=== PATIENT | male | born 1960 | race Caucasian/White ===

== ENCOUNTER → 2016-08-05 | Outpatient (CLI) | payer BC ==
--- NOTE | 2016-08-05 14:51 | CR ---
EXAMINATION: Left elbow HISTORY: Pain COMPARISON: None TECHNIQUE: 3 views FINDINGS/IMPRESSION: There is no acute osseous abnormality, dislocation, or fracture identified. No joint effusion or soft tissue swelling. Mild osteoarthritic changes are noted within the medial join t space.
== END ==
LOC: MW.CHRC 11:11
PROVIDERS: ATTEND Family Medicine
DX: M25.522 Pain in left elbow (principal); M25.422 Effusion, left elbow; M19.022 Primary osteoarthritis, left elbow
CPT/HCPCS: 73080-26-LT; 73080-LT

== ENCOUNTER 2016-12-25 07:45 | Day surgery (SDC) | payer BC ==
[~2016-12-25 07:45] MED LIST: Lactated Ringers 1,000 ML IV SCH; Lidocaine 2% 5 ML SDV ONE; Propofol 200 MG/20 ML SDV ONE; fentaNYL 100 MCG/2 ML SDV ONE
[2016-12-25] MEDS ORDERED: Albuterol/Ipratropium 3.0-0.5 MG/3 ML Neb Soln NEB ONE (08:17)
--- NOTE | 2016-12-25 08:21 | PCM.PREANE ---
Preanesthetic Assessment - Anesthesia/Transfusion/Family Hx Anesthesia History: Prior Anesthesia Without Reaction Other Type of Anesthesia Reaction Comment: Denies any known problem in the past Family History of Anesthesia Reaction: No Transfusion History: Prior Transfusion Without Reaction Intubation History: Unknown - Review of Systems General: No Symptoms Pulmonary: No Symptoms Cardiovascular: No Symptoms Gastrointestinal: No Symptoms, Other (melena) Neurological: No Symptoms Other: Reports: None - Physical Assessment O2 Sat by Pulse Oximetry: 98 Respiratory Rate: 16 Vital Signs: Last Vital Signs Temp 36.7 C 12/25/16 07:56 Pulse 70 12/25/16 07:56 Resp 16 12/25/16 07:56 BP 153/98 H 12/25/16 07:56 Pulse Ox 98 12/25/16 07:56 Height: 1.8 m Weight: 92.079 kg ASA Class: 2 Mental Status: Alert & Oriented x3 Airway Class: Mallampati = 2 Dentition: Reports: Normal Dentition Thyro-Mental Finger Breadths: 3 Mouth Opening Finger Breadths: 3 ROM/Head Extension: Full Lungs: Normal Respiratory Effort, Wheezing Cardiovascular: Regular Rate, Regular Rhythm - Allergies Allergies/Adverse Reactions: Allergies Allergy/AdvReac Type Severity Reaction Status Date / Time No Known Allergies Allergy Verified 05/10/15 14:00 - Blood Blood Available: No - Anesthesia Plan Pre-Op Medication Ordered: None - Acknowledgements Anesthesia Type Planned: MAC Pt an Appropriate Candidate for the Planned Anesthesia: Yes Alternatives and Risks of Anesthesia Discussed w Pt/Guardian: Yes Pt/Guardian Understands and Agrees with Anesthesia Plan: Yes PreAnesthesia Questionnaire Cardiovascular History: Reports: High Cholesterol Respiratory History: Reports: COPD (walks 2 blocks without SOB), Other (See Below) Other Respiratory History: Tobacco dependence reports 35 yr history current use 1 pack per day Gastrointestinal History: Reports: GERD, Other (See Below) (upper GI bleed 4 years ago in [place] requiring 5 units of blood transfusion) Other Gastrointestinal History: hx; heartburn/indigestion reports managed with omeprazole Psychiatric History: Reports: Depression Hematologic History: Reports: Anemia, Blood Transfusion(s), Other (See Below) Other Hematologic History: Reports history of having a blood transfusion - Past Surgical History Head Surgeries/Procedures: Reports: None GI Surgical History: Reports: EGD Neurological Surgical History: Reports: Lumbar Spine, Other (See Below) Other Neurological Surgeries/Procedures: Low back surgery Musculoskeletal Surgical History: Reports: Arthroscopic Knee - SUBSTANCE USE Smoking Status *Q: Current Every Day Smoker (1 ppd) Tobacco Use Within Last Twelve Months: Cigarettes Days Per Week of Alcohol Use: 7 Number of Drinks Per Day: 4 Total Drinks Per Week: 28 Recreational Drug Use History: Yes Recreational Drug Type: Recreational Drug Last Use: 2 days ago - HOME MEDS Home Medications: Home Meds Ferrous Sulfate [Iron] 325 mg PO BID 12/22/16 [History] Omeprazole 40 mg PO DAILY 12/22/16 [History] - CURRENT (IN HOUSE) MEDS Current Meds: Current Medications Lactated Ringer's (Ringers, Lactated) 1,000 mls @ 125 mls/hr IV ASDIRECTED VERO Last Admin: 12/25/16 07:58 Dose: 125 mls/hr Discontinued Medications Fentanyl (Sublimaze) Confirm Administered Dose 100 mcg .ROUTE .STK-MED ONE Stop: 12/25/16 07:18 Lidocaine (Xylocaine-Mpf 2%) Confirm Administered Dose 5 ml .ROUTE .STK-MED ONE Stop: 12/25/16 07:18 Propofol (Diprivan 20 Ml) Confirm Administered Dose 400 mg .ROUTE .STK-MED ONE Stop: 12/25/16 07:18
--- NOTE | 2016-12-25 10:42 | PCM.OPNOTE ---
- General Post-Op/Procedure Note Date of Surgery/Procedure: 12/25/16 Operative Procedure(s): Esophagogastroduodenoscopy with biopsy. Pre Op Diagnosis: Iron deficiency anemia. Melena. Post-Op Diagnosis: Multiple proximal gastric ulcers. Large hiatal hernia. Anesthesia Technique: MAC (ASA II) Primary Surgeon: Rob Goddard Condition: Good Free Text/Narrative:: Dictation [id number]. CPT CODE 39571. Patient will be started on Carafate 1 g 4 times a day and Nexium 40 mg daily.
[2016-12-25] MEDS ORDERED: Lactated Ringers 1,000 ML IV SCH (10:45)
[2016-12-25 11:07] VITALS: BP 125/88
--- NOTE | 2016-12-25 11:07 | OR ---
SURGEON: Rob Goddard M.D. DATE OF PROCEDURE: 12/25/2016 OPERATION PERFORMED: Esophagogastroduodenoscopy with biopsy. ANESTHESIA: MAC. ASA CLASSIFICATION: II. PREOPERATIVE DIAGNOSES: 1. Black tarry stools. 2. Anemia. 3. History of gastrointestinal bleed. POSTOPERATIVE DIAGNOSES: 1. Multiple proximal gastric ulcers. 2. Large hiatal hernia. DESCRIPTION OF PROCEDURE: The patient was taken to the endoscopy room and positioned on the endoscopy table in the supine position. Time-out was called for appropriate identification of patient and procedure. Monitored anesthesia care was provided. The bite block was placed between the patient's teeth. The gastroscope was inserted through the bite block into the mouth and advanced without difficulty through the esophagus and stomach, into the duodenum, where examination was carried out in a retrograde fashion. No blood was seen in the duodenum. No ulcerations or inflammatory changes were noted. The gastroscope was withdrawn to the distal stomach and antrum. Again, mild gastritis was noted but no acute ulcerations. The gastroscope was retroflexed to visualize the proximal stomach, where multiple superficial ulcerations were noted along with a large hiatal hernia. The gastroscope was then straightened, and biopsies of the antrum were obtained. As the scope was withdrawn, the proximal stomach was again visualized and multiple biopsies of the superficial ulcers were also obtained. The hiatal hernia was quite large. The GE junction was well defined and did not show any significant acute inflammatory changes. The mid and proximal esophagus showed good contractility and again no lesions. The vocal cords were visualized as the scope was withdrawn and noted to move symmetrically. The gastroscope was then removed with the patient having tolerated the procedure well. He was taken to recovery room in stable condition. ALEXANDR PHELAN /[id number]
== END 2016-12-25 11:05 | disposition home or self-care (01) ==
LOC: MW.SDS 07:45
PROVIDERS: ATTEND Surgery
PROC: 0DB68ZX Excision of Stomach, Via Natural or Artificial Opening Endoscopic, Diagnostic (ICD-10-PCS; principal; 2016-12-25)
DX: K29.50 Unspecified chronic gastritis without bleeding (principal); K25.9 Gastric ulcer, unspecified as acute or chronic, without hemorrhage or perforation; K44.9 Diaphragmatic hernia without obstruction or gangrene; D50.9 Iron deficiency anemia, unspecified; M19.90 Unspecified osteoarthritis, unspecified site; J44.9 Chronic obstructive pulmonary disease, unspecified; F32.9 Major depressive disorder, single episode, unspecified; E78.5 Hyperlipidemia, unspecified; K21.9 Gastro-esophageal reflux disease without esophagitis; M17.11 Unilateral primary osteoarthritis, right knee; F17.210 Nicotine dependence, cigarettes, uncomplicated; Z79.899 Other long term (current) drug therapy; Z98.890 Other specified postprocedural states
CPT/HCPCS: 43239; 94664; J3010; J7120; 00740; 88305; 88312; J2704

== ENCOUNTER 2017-01-29 11:37 | Inpatient (IN) | payer BC ==
[2017-01-29] MEDS ORDERED: Diltiazem 25 MG/5 ML SDV IVPUSH ONE (11:47)
[2017-01-29] MEDS ORDERED: Sodium Chloride 0.9% 10 ML Syringe FLUSH PRN (11:47)
[2017-01-29] MEDS ORDERED: Sodium Chloride 0.9% 2.5 ML Syringe FLUSH PRN (11:47)
[2017-01-29] MEDS ORDERED: Sodium Chloride 0.9% 1,000 ML IV ONE (11:47)
[2017-01-29] MEDS ORDERED: Aspirin 81 MG Tab.Chew PO ONE (11:47)
--- NOTE | 2017-01-29 11:52 | EDM.PDOC ---
ED HPI GENERAL MEDICAL PROBLEM - General Chief Complaint: Chest Pain Stated Complaint: CHEST PAIN Time Seen by Provider: 01/29/17 11:41 - History of Present Illness INITIAL COMMENTS - FREE TEXT/NARRATIVE: HISTORY AND PHYSICAL: History of present illness: The patient is a 56-year-old male with a history of ulcer disease --for which he takes medications-- and COPD, long-standing history of tobacco use but no cardiac or hypertension issues and presents with sudden onset of rapid irregular heartbeat and feeling lightheaded while he was driving his car. Patient said he had a normal morning today with no systemic complaints and he has had no fevers chills chest pain shortness of breath or upper respiratory symptoms or difficulty eating or drinking. He said he did have some loose stool today which is unusual but was not black or bloody. Patient said he did drink a lot of coffee this morning as well as a Mountain Dew and when he was driving he suddenly felt very lightheaded and felt like there was a fluttering in his chest and his heart rate was too fast and irregular. He did not pass out or blackout and he had no pain with this. He did feel somewhat short of breath but did not get sweaty or nauseated. Currently in the ED he feels better but he still having the sensation of the irregular fast heartbeat. Patient denies any history of thyroid disease or palpitations in the past. Patient tells me that his smoking uses anywhere from a half a pack to a pack a day and his caffeine use also varies daily Review of systems: As per history of present illness and below otherwise all systems reviewed and negative. Past medical history: As per history of present illness and as reviewed below otherwise noncontributory. Surgical history: As per history of present illness and as reviewed below otherwise noncontributory. Social history: No reported history of drug or alcohol abuse. Family history: As per history of present illness and as reviewed below otherwise noncontributory. Physical exam: General: Well-developed well-nourished man speaking clearly and easily in the ED. His vital signs were noted by me. HEENT: Atraumatic, normocephalic, negative for conjunctival pallor or scleral icterus, mucous membranes moist, throat clear, neck supple, nontender, trachea midline. No thyromegaly Lungs: Clear to auscultation, breath sounds equal bilaterally, chest nontender. No worker breathing or sensory muscle use Heart: S1S2, irregular heart rate and rhythm on auscultation with rates in the 140s to 150s, negative for clicks, rubs, or JVD. Abdomen: Soft, nondistended, nontender. Negative for masses or hepatosplenomegaly. NABS Pelvis: Stable nontender. Genitourinary: Deferred. Rectal: Deferred. Extremities: Atraumatic, negative for cords or calf pain. Neurovascular unremarkable. No pedal edema Neuro: Awake, alert, oriented. Cranial nerves II through XII unremarkable. Cerebellum unremarkable. Motor and sensory unremarkable throughout. Exam nonfocal. Diagnostics: EKG 2 CBC CMP INR troponin TSH chest x-ray Therapeutics: IV O2 monitor IV fluids Cardizem aspirin Lovenox Lopressor On reevaluation after the Cardizem bolus and Lopressor ,the patient's heart rate is variable on my visual inspection of the monitor ranging anywhere from 90s to 140s but it consistently is staying in the 100-120's. I have discussed with the patient what age her fibrillation is in the risks involved and his need for admission to the hospital. We are currently having a Cardizem drip and I will give him a dose of Lovenox. I will repeat the EKG and plan for admission and discussed the case with the hospitalist Dr. Camilo was notified of this patient at 1313 and agrees with admission and as he is on a Cardizem drip he will go to the ICU. He has seen both EKGs Critical care time excluding procedures: 31min Impression: New onset A. fib with RVR Definitive disposition and diagnosis as appropriate pending reevaluation and review of above. Chest Pain Score (Numeric/FACES): 5 - Related Data Allergies Allergy/AdvReac Type Severity Reaction Status Date / Time No Known Allergies Allergy Verified 01/29/17 11:39 Home Meds: Home Meds Ferrous Sulfate [Iron] 325 mg PO BID 12/22/16 [History] Omeprazole 40 mg PO DAILY 12/22/16 [History] Past Medical History Cardiovascular History: Reports: High Cholesterol Respiratory History: Reports: COPD (walks 2 blocks without SOB), Other (See Below) Other Respiratory History: Tobacco dependence reports 35 yr history current use 1 pack per day Gastrointestinal History: Reports: GERD, Other (See Below) (upper GI bleed 4 years ago in [place] requiring 5 units of blood transfusion) Other Gastrointestinal History: hx; heartburn/indigestion reports managed with omeprazole Psychiatric History: Reports: Depression Hematologic History: Reports: Anemia, Blood Transfusion(s), Other (See Below) Other Hematologic History: Reports history of having a blood transfusion - Past Surgical History Head Surgeries/Procedures: Reports: None GI Surgical History: Reports: EGD Neurological Surgical History: Reports: Lumbar Spine, Other (See Below) Other Neurological Surgeries/Procedures: Low back surgery Musculoskeletal Surgical History: Reports: Arthroscopic Knee Social & Family History - Tobacco Use Smoking Status *Q: Current Every Day Smoker (1 ppd) Years of Tobacco use: 35 Packs/Tins Daily: 1 - Alcohol Use Days Per Week of Alcohol Use: 7 Number of Drinks Per Day: 4 Total Drinks Per Week: 28 - Recreational Drug Use Recreational Drug Use: Yes Drug Use in Last 12 Months: No Recreational Drug Type: Recreational Drug Last Use: 2 days ago ED ROS GENERAL - Review of Systems Review Of Systems: ROS reveals no pertinent complaints other than HPI. ED EXAM, GENERAL - Physical Exam Exam: See Below (See dictation) Course - Vital Signs Last Recorded V/S: Last Vital Signs Temp 36.3 C 01/29/17 11:40 Pulse 130 H 01/29/17 12:30 Resp 20 01/29/17 11:40 BP 132/86 01/29/17 12:30 Pulse Ox 95 01/29/17 11:40 - Orders/Labs/Meds Orders: Active Orders 24 hr Category Date Time Status Patient Status [ADT] Stat ADT 01/29/17 13:16 Ordered Cardiac Monitoring [RC] . DIRECTED Care 01/29/17 11:47 Active EKG Documentation Completion [RC] STAT Care 01/29/17 11:47 Active EKG Documentation Completion [RC] STAT Care 01/29/17 12:32 Active Oxygen Therapy, ED [RC] ASDIRECTED Care 01/29/17 11:47 Active Pulse Oximetry [RC] ASDIRECTED Care 01/29/17 11:47 Active Diltiazem [Cardizem] 100 mg Med 01/29/17 12:15 Active Sodium Chloride 0.9% [Normal Saline] 100 ml IV TITRATE Sodium Chloride 0.9% [Saline Flush] Med 01/29/17 11:47 Active 10 ml FLUSH ASDIRECTED PRN Sodium Chloride 0.9% [Saline Flush] Med 01/29/17 11:47 Active 2.5 ml FLUSH ASDIRECTED PRN Saline Lock Insert [OM.PC] Stat Oth 01/29/17 11:47 Ordered Medication Orders Diltiazem HCl 100 mg/ Sodium (Chloride) 100 mls @ 10 mls/hr IV TITRATE VERO; 10 MG/HR PRN Reason: Protocol Last Admin: 01/29/17 12:30 Dose: 5 mg/hr, 5 mls/hr Sodium Chloride (Saline Flush) 10 ml FLUSH ASDIRECTED PRN PRN Reason: Keep Vein Open Sodium Chloride (Saline Flush) 2.5 ml FLUSH ASDIRECTED PRN PRN Reason: Keep Vein Open Labs: Laboratory Tests 01/29/17 01/29/17 01/29/17 Range/Units 11:50 11:50 11:50 WBC 5.73 (4.0-11.0) K/uL RBC 4.42 L (4.50-5.90) M/uL Hgb 13.0 (13.0-17.0) g/dL Hct 39.5 (38.0-50.0) % MCV 89.4 (80.0-98.0) fL MCH 29.4 (27.0-32.0) pg MCHC 32.9 (31.0-37.0) g/dL RDW Std Deviation 48.0 (28.0-62.0) fl RDW Coeff of Miguel 15 (11.0-15.0) % Plt Count 284 (150-400) K/uL MPV 9.90 (7.40-12.00) fL Neut % (Auto) 49.4 (48.0-80.0) % Lymph % (Auto) 32.5 (16.0-40.0) % Edwards % (Auto) 14.1 (0.0-15.0) % Eos % (Auto) 3.3 (0.0-7.0) % Baso % (Auto) 0.7 (0.0-1.5) % Neut # (Auto) 2.8 (1.4-5.7) K/uL Lymph # (Auto) 1.9 (0.6-2.4) K/uL Edwards # (Auto) 0.8 (0.0-0.8) K/uL Eos # (Auto) 0.2 (0.0-0.7) K/uL Baso # (Auto) 0.0 (0.0-0.1) K/uL Nucleated RBC % 0.0 /100WBC Nucleated RBCs # 0 K/uL INR 0.97 (0.86-1.11) Sodium 138 (136-146) mmol/L Potassium 4.2 (3.5-5.1) mmol/L Chloride 104 (98-110) mmol/L Carbon Dioxide 24 (21-31) mmol/L BUN 16 (6.0-23.0) mg/dL Creatinine 0.9 (0.6-1.5) mg/dL Est Cr Clr Drug Dosing 97.61 mL/min Estimated GFR (MDRD) > 60.0 ml/min Glucose 92 (60-110) mg/dL Calcium 9.5 (8.8-10.8) mg/dL Total Bilirubin 0.4 (0.1-1.5) mg/dL AST 27 (5-40) IU/L ALT 23 (8-54) IU/L Alkaline Phosphatase 63 (40-150) Troponin I (0.0-0.29) NG/ML Total Protein 8.0 (6.0-8.0) g/dL Albumin 4.1 (3.5-5.0) g/dL Globulin 3.9 H (2.0-3.5) g/dL Albumin/Globulin Ratio 1.1 L (1.3-2.8) TSH 3rd Generation 0.88 (0.47-5.0) uIU/mL 01/29/17 Range/Units 11:50 WBC (4.0-11.0) K/uL RBC (4.50-5.90) M/uL Hgb (13.0-17.0) g/dL Hct (38.0-50.0) % MCV (80.0-98.0) fL MCH (27.0-32.0) pg MCHC (31.0-37.0) g/dL RDW Std Deviation (28.0-62.0) fl RDW Coeff of Miguel (11.0-15.0) % Plt Count (150-400) K/uL MPV (7.40-12.00) fL Neut % (Auto) (48.0-80.0) % Lymph % (Auto) (16.0-40.0) % Edwards % (Auto) (0.0-15.0) % Eos % (Auto) (0.0-7.0) % Baso % (Auto) (0.0-1.5) % Neut # (Auto) (1.4-5.7) K/uL Lymph # (Auto) (0.6-2.4) K/uL Edwards # (Auto) (0.0-0.8) K/uL Eos # (Auto) (0.0-0.7) K/uL Baso # (Auto) (0.0-0.1) K/uL Nucleated RBC % /100WBC Nucleated RBCs # K/uL INR (0.86-1.11) Sodium (136-146) mmol/L Potassium (3.5-5.1) mmol/L Chloride (98-110) mmol/L Carbon Dioxide (21-31) mmol/L BUN (6.0-23.0) mg/dL Creatinine (0.6-1.5) mg/dL Est Cr Clr Drug Dosing mL/min Estimated GFR (MDRD) ml/min Glucose (60-110) mg/dL Calcium (8.8-10.8) mg/dL Total Bilirubin (0.1-1.5) mg/dL AST (5-40) IU/L ALT (8-54) IU/L Alkaline Phosphatase (40-150) Troponin I < 0.10 (0.0-0.29) NG/ML Total Protein (6.0-8.0) g/dL Albumin (3.5-5.0) g/dL Globulin (2.0-3.5) g/dL Albumin/Globulin Ratio (1.3-2.8) TSH 3rd Generation (0.47-5.0) uIU/mL Meds: Medications Generic Name Dose Route Start Last Admin Trade Name Freq PRN Reason Stop Dose Admin Diltiazem HCl 100 mg/ Sodium 100 mls @ 10 mls/hr 01/29/17 12:15 01/29/17 12: 30 Chloride IV 5 mg/hr TITRATE VERO 5 mls/hr Protocol Administration 10 MG/HR Sodium Chloride 10 ml 01/29/17 11:47 Saline Flush FLUSH ASDIRECTED PRN Keep Vein Open Sodium Chloride 2.5 ml 01/29/17 11:47 Saline Flush FLUSH ASDIRECTED PRN Keep Vein Open Discontinued Medications Generic Name Dose Route Start Last Admin Trade Name Freq PRN Reason Stop Dose Admin Aspirin 324 mg 01/29/17 11:47 01/29/17 12:03 Aspirin PO 01/29/17 11:48 324 mg ONETIME ONE Administration Diltiazem HCl 20 mg 01/29/17 11:47 01/29/17 12:02 Diltiazem IVPUSH 01/29/17 11:48 20 mg ONETIME ONE Administration Enoxaparin Sodium 100 mg 01/29/17 12:30 Lovenox SUBCUT 01/29/17 12:31 ONETIME ONE Sodium Chloride 1,000 mls @ 999 mls/hr 01/29/17 11:47 01/29/17 12:09 Normal Saline IV 01/29/17 12:47 999 mls/hr STAT ONE Administration Metoprolol Tartrate 5 mg 01/29/17 12:08 01/29/17 12:13 Lopressor IVPUSH 01/29/17 12:09 5 mg ONETIME ONE Administration Departure - Departure Time of Disposition: 13:18 Disposition: Admitted As Inpatient 66 Condition: Good Clinical Impression: Atrial fibrillation with RVR - Discharge Information Referrals: PCP,None [Primary Care Provider] - Forms: ED Department Discharge - My Orders Last 24 Hours: My Active Orders 01/29/17 11:47 Cardiac Monitoring [RC] . DIRECTED EKG Documentation Completion [RC] STAT Oxygen Therapy, ED [RC] ASDIRECTED Pulse Oximetry [RC] ASDIRECTED Sodium Chloride 0.9% [Saline Flush] 10 ml FLUSH ASDIRECTED PRN Sodium Chloride 0.9% [Saline Flush] 2.5 ml FLUSH ASDIRECTED PRN Saline Lock Insert [OM.PC] Stat 01/29/17 12:15 Diltiazem [Cardizem] 100 mg Sodium Chloride 0.9% [Normal Saline] 100 ml IV TITRATE 01/29/17 12:32 EKG Documentation Completion [RC] STAT 01/29/17 13:16 Patient Status [ADT] Stat - Assessment/Plan Last 24 Hours: My Active Orders 01/29/17 11:47 Cardiac Monitoring [RC] . DIRECTED EKG Documentation Completion [RC] STAT Oxygen Therapy, ED [RC] ASDIRECTED Pulse Oximetry [RC] ASDIRECTED Sodium Chloride 0.9% [Saline Flush] 10 ml FLUSH ASDIRECTED PRN Sodium Chloride 0.9% [Saline Flush] 2.5 ml FLUSH ASDIRECTED PRN Saline Lock Insert [OM.PC] Stat 01/29/17 12:15 Diltiazem [Cardizem] 100 mg Sodium Chloride 0.9% [Normal Saline] 100 ml IV TITRATE 01/29/17 12:32 EKG Documentation Completion [RC] STAT 01/29/17 13:16 Patient Status [ADT] Stat
[2017-01-29] MEDS ORDERED: Metoprolol Tartrate 5 MG/5 ML SDV IVPUSH ONE (12:08)
[2017-01-29 12:21] LABS: CHLORIDE,CL 104 mmol/L (98-110); SODIUM,NA 138 mmol/L (136-146)
[2017-01-29] MEDS ORDERED: Enoxaparin 100 MG/1 ML Syringe SUBCUT ONE (12:30)
[2017-01-29] MEDS: Diltiazem 100 MG in Sodium Chloride 0.9% 100 ML IV SCH ×2 (12:30→19:35)
--- NOTE | 2017-01-29 13:04 | CR ---
EXAMINATION: Portable chest radiograph. HISTORY: Shortness of breath. FINDINGS: The trachea is midline. The cardiomediastinal silhouette is within normal limits. No pulmonary infilt rates, effusions or pneumothorax. There is bibasilar atelectasis/scarring noted. Osseous structures appear unremarkable. IMPRESSION: No acute cardiopulmonary process.
[2017-01-29] MEDS ORDERED: oxyCODONE 5 MG Tab PO PRN (14:38)
[2017-01-29] MEDS ORDERED: Docusate Sodium 100 MG Cap PO PRN (14:38)
[2017-01-29] MEDS ORDERED: Ondansetron 8 MG Tab.DIS PO PRN (14:38)
[2017-01-29] MEDS ORDERED: Morphine 2 MG/ML Syringe IVPUSH PRN (14:38)
[2017-01-29] MEDS ORDERED: Temazepam 15 MG Cap PO PRN (14:38)
[2017-01-29] MEDS ORDERED: Acetaminophen 325 MG Tab PO PRN (14:38)
[2017-01-29] MEDS ORDERED: Enoxaparin 40 MG/0.4 ML Syringe SUBCUT SCH (14:45)
[2017-01-29] MEDS: Sodium Chloride 0.9% 1,000 ML IV SCH (15:13)
[2017-01-29] MEDS: Nicotine 14 MG/24 Hr Patch TRDERM SCH (16:46)
[2017-01-29] MEDS: Omeprazole 20 MG Cap.CR PO SCH (16:47)
[2017-01-29] MEDS: FLUoxetine 20 MG Cap PO SCH (16:47)
[2017-01-29] MEDS ORDERED: Pantoprazole 40 MG in Sodium Chloride 0.9% 10 ML IVPUSH SCH (17:00)
[2017-01-29] MEDS: Pantoprazole 40 MG in Sodium Chloride 0.9% 10 ML IVPUSH SCH (18:19)
[2017-01-29] MEDS: Sucralfate 1 GM Tab PO SCH (18:22)
--- NOTE | 2017-01-29 18:26 | CONS ---
DATE OF CONSULTATION: 01/29/2017 DATE OF : 1960 PRIMARY CARE PHYSICIAN: None PCP REASON FOR CONSULTATION: AFib with RVR. HISTORY OF PRESENT ILLNESS: This is a 56-year-old male, with history of alcoholic abuse, dyslipidemia, COPD, currently smoking, history of recent GI bleeding with multiple gastric ulcers, presented to the hospital at this time due to palpitation when he was at work. 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 He started feeling palpitation, heart racing, associated with shortness of breath and lightheadedness. He feels like his heart rate is irregular; however, he denies chest pain, passing out, syncope. He expressed some cold sweats and dizziness. He denied history of heart attack, hypertension, or diabetes. He did not take any cardiac medications and that is why he was in the emergency room. When he was in the emergency room, his heart rate initially was 140-150 with AFib RVR and he got Cardizem IV drip. That is why he was admitted in the hospital. Recently, he was also having upper GI bleeding and underwent upper endoscopy that did show multiple gastric ulcers. He continued to have black tarry stools still; however, his hemoglobin at this time in this admission is still stable at the number hematocrit of 39. At this time, he denied using NSAID; however, he drinks 2 strong drinks every night and last time that he drank was yesterday. PAST MEDICAL HISTORY: Include current smoker, COPD, history of multiple gastric ulcers with recent GI bleeding, alcoholic abuse, dyslipidemia. SOCIAL HISTORY: Current smoker of 1/2 pack a day. Drinks 2 strong drinks every day. No drug use. 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 ALLERGIES: No known drug allergies. FAMILY HISTORY: No family history of a heart attack. However, his mother had a history of AFib. His father of a heart attack at 70s. REVIEW OF SYSTEMS: Seems to be negative for 12-point review of systems except as indicated in HPI. PHYSICAL EXAMINATION: VITAL SIGNS: Blood pressure initially was 126/95, now is 132/86, heart rate is initially 140-150, now is 90-100 on Cardizem IV drip, O2 saturation 95 on 2 L, temperature is 36.3, respiration is 18. HEENT: No pallor, no jaundice, no JVD. HEART: Normal S1, S2. No murmur. Totally irregular tachycardia. LUNGS: Clear. No wheezing. No crackles. ABDOMEN: Soft, nontender. Bowel sounds present. No hepatosplenomegaly. EXTREMITIES: Legs, no edema. INVESTIGATION: EKG showed atrial fibrillation, RVR, heart rate of 102, QRS duration 90, QTc possibly 420. Echocardiogram is still pending. CBC shows WBC 5, hematocrit of 39, platelet of 284. INR 0.97. Sodium 138, potassium 4.2, chloride 104, bicarb 24, BUN 16, creatinine 0.9, magnesium 1.4. Troponin is negative. TSH is 0.88. He also had a stress test done in the past in 2011. At that time, he had exercise nuclear which is negative in nuclear portion as well as ECG portion and at that time, the indication was shortness of breath and some chest pain, that was done when he was in [place] actually. At that time from a stress test, it did show, his ejection fraction seemed to be 55%. ASSESSMENT AND PLAN: This is a 56-year-old male with history of chronic obstructive pulmonary disease, alcoholic abuse as well as current smoker, dyslipidemia, presented to the hospital with new onset of atrial fibrillation, recently ablated, multiple gastric ulcers, with a black tarry stool. He is on Cardizem IV drip now, seems to be well controlled. I would recommend to transition to p.o. possibly tomorrow, can start on the Cardizem 30 q.6 hours and then likely with discharge we can combine the dose. Regarding anticoagulation with recent gastrointestinal bleeding and multiple gastric ulcers, I would hold off anticoagulation for now, just a rate control, because for the rhythm latter day, he would need anticoagulation at least for four weeks after cardioversion. I would check his cardiac enzymes three times every 8 hours as well as echocardiogram. His atrial fibrillation could be age related or could be alcohol related. I told him to avoid drinking because this could be the cause of AFib as well. I will follow him the next morning. MAR PHELAN /[id number]
[2017-01-29] MEDS ORDERED: Magnesium Sulfate/Water 2 GM in Premix Bag 1 BAG IV ONE (21:38)
[2017-01-30] MEDS: Sucralfate 1 GM Tab PO SCH ×4 (00:05→17:23)
[2017-01-30] MEDS: Sodium Chloride 0.9% 1,000 ML IV SCH ×3 (02:51→23:06)
[2017-01-30] MEDS: Pantoprazole 40 MG in Sodium Chloride 0.9% 10 ML IVPUSH SCH ×2 (05:06→16:41)
[2017-01-30 05:47] LABS: CHLORIDE,CL 107 mmol/L (98-110); SODIUM,NA 139 mmol/L (136-146)
[2017-01-30] MEDS ORDERED: Omeprazole 20 MG Cap.CR PO SCH (09:00)
[2017-01-30] MEDS: Nicotine 14 MG/24 Hr Patch TRDERM SCH (09:02)
[2017-01-30] MEDS: Omeprazole 20 MG Cap.CR PO SCH (09:02)
[2017-01-30] MEDS: FLUoxetine 20 MG Cap PO SCH (09:02)
[2017-01-30] MEDS ORDERED: Magnesium Sulfate/Water 4 GM in Premix Bag 1 BAG IV ONE (10:24)
[2017-01-30] MEDS ORDERED: Diltiazem 120 MG Cap.CD PO ONE (10:37)
--- NOTE | 2017-01-30 11:17 | PCM.PN ---
- General Info Date of Service: 01/30/17 Subjective Update: he felt well, last nighthis BP was drop in 80s, dil IVF gtt stopped, his HR 100s rage, now BP improved. - Review of Systems General: Reports: No Symptoms HEENT: Reports: No Symptoms Pulmonary: Reports: No Symptoms Cardiovascular: Reports: Palpitations Gastrointestinal: Reports: No Symptoms Genitourinary: Reports: No Symptoms Musculoskeletal: Reports: No Symptoms Skin: Reports: No Symptoms Neurological: Reports: No Symptoms - Patient Data Vitals - Most Recent: Last Vital Signs Temp 36.6 C 01/30/17 08:00 Pulse 131 H 01/30/17 10:51 Resp 15 01/30/17 10:00 BP 102/55 L 01/30/17 10:51 Pulse Ox 94 L 01/30/17 10:00 Weight - Most Recent: 97.5 kg I&O - Last 24 Hours: Intake & Output 01/29/17 01/30/17 01/30/17 22:59 06:59 14:59 Intake Total 0 1900 Output Total 0 1225 Balance 0 675 Lab Results Last 24 Hours: Laboratory Results - last 24 hr 01/30/17 01/30/17 01/30/17 Range/Units 05:02 05:02 05:02 WBC 4.77 (4.0-11.0) K/uL RBC 3.90 L (4.50-5.90) M/uL Hgb 11.3 L (13.0-17.0) g/dL Hct 35.2 L (38.0-50.0) % MCV 90.3 (80.0-98.0) fL MCH 29.0 (27.0-32.0) pg MCHC 32.1 (31.0-37.0) g/dL RDW Std Deviation 48.4 (28.0-62.0) fl RDW Coeff of Miguel 15 (11.0-15.0) % Plt Count 228 (150-400) K/uL MPV 9.40 (7.40-12.00) fL Neut % (Auto) 37.9 L (48.0-80.0) % Lymph % (Auto) 43.4 H (16.0-40.0) % Davis % (Auto) 14.3 (0.0-15.0) % Eos % (Auto) 3.4 (0.0-7.0) % Baso % (Auto) 1.0 (0.0-1.5) % Neut # (Auto) 1.8 (1.4-5.7) K/uL Lymph # (Auto) 2.1 (0.6-2.4) K/uL Davis # (Auto) 0.7 (0.0-0.8) K/uL Eos # (Auto) 0.2 (0.0-0.7) K/uL Baso # (Auto) 0.1 (0.0-0.1) K/uL Nucleated RBC % 0.0 /100WBC Nucleated RBCs # 0 K/uL Sodium (136-146) mmol/L Potassium (3.5-5.1) mmol/L Chloride (98-110) mmol/L Carbon Dioxide (21-31) mmol/L BUN (6.0-23.0) mg/dL Creatinine (0.6-1.5) mg/dL Est Cr Clr Drug Dosing mL/min Estimated GFR (MDRD) ml/min Glucose (60-110) mg/dL Hemoglobin A1c 5.9 (0.0-6.0) % Calcium (8.8-10.8) mg/dL Magnesium (1.5-2.3) mEq/L Triglycerides 214 H (10-190) mg/dL Cholesterol 214 (131-240) mg/dL LDL Cholesterol, Calc 132 (60-180) mg/dL VLDL Cholesterol 43 (5-55) mg/dL HDL Cholesterol 39 L (40-80) mg/dL Cholesterol/HDL Ratio 5.5 (3.3-6.0) 01/30/17 Range/Units 05:02 WBC (4.0-11.0) K/uL RBC (4.50-5.90) M/uL Hgb (13.0-17.0) g/dL Hct (38.0-50.0) % MCV (80.0-98.0) fL MCH (27.0-32.0) pg MCHC (31.0-37.0) g/dL RDW Std Deviation (28.0-62.0) fl RDW Coeff of Miguel (11.0-15.0) % Plt Count (150-400) K/uL MPV (7.40-12.00) fL Neut % (Auto) (48.0-80.0) % Lymph % (Auto) (16.0-40.0) % Davis % (Auto) (0.0-15.0) % Eos % (Auto) (0.0-7.0) % Baso % (Auto) (0.0-1.5) % Neut # (Auto) (1.4-5.7) K/uL Lymph # (Auto) (0.6-2.4) K/uL Davis # (Auto) (0.0-0.8) K/uL Eos # (Auto) (0.0-0.7) K/uL Baso # (Auto) (0.0-0.1) K/uL Nucleated RBC % /100WBC Nucleated RBCs # K/uL Sodium 139 (136-146) mmol/L Potassium 4.6 (3.5-5.1) mmol/L Chloride 107 (98-110) mmol/L Carbon Dioxide 28 (21-31) mmol/L BUN 15 (6.0-23.0) mg/dL Creatinine 0.9 (0.6-1.5) mg/dL Est Cr Clr Drug Dosing 97.61 mL/min Estimated GFR (MDRD) > 60.0 ml/min Glucose 100 (60-110) mg/dL Hemoglobin A1c (0.0-6.0) % Calcium 8.3 L (8.8-10.8) mg/dL Magnesium 1.5 (1.5-2.3) mEq/L Triglycerides (10-190) mg/dL Cholesterol (131-240) mg/dL LDL Cholesterol, Calc (60-180) mg/dL VLDL Cholesterol (5-55) mg/dL HDL Cholesterol (40-80) mg/dL Cholesterol/HDL Ratio (3.3-6.0) Med Orders - Current: Current Medications Acetaminophen (Tylenol) 650 mg PO Q4H PRN PRN Reason: Pain (Mild 1-3)/fever Diltiazem HCl (Cardizem Cd) 240 mg PO DAILY [facility] Docusate Sodium (Colace) 100 mg PO BID PRN PRN Reason: Constipation Fluoxetine HCl (Prozac) 20 mg PO DAILY [facility] Last Admin: 01/30/17 09:02 Dose: 20 mg Diltiazem HCl 100 mg/ Sodium (Chloride) 100 mls @ 10 mls/hr IV TITRATE [facility]; 10 MG/HR PRN Reason: Protocol Last Titration: 01/30/17 01:05 Dose: 0 mg/hr, 0 mls/hr Sodium Chloride (Normal Saline) 1,000 mls @ 75 mls/hr IV ASDIRECTED [facility] Last Admin: 01/30/17 09:59 Dose: 75 mls/hr Pantoprazole Sodium 40 mg/ (Sodium Chloride) 10 mls @ 300 mls/hr IVPUSH Q12H [facility] Last Admin: 01/30/17 05:06 Dose: 300 mls/hr Magnesium Sulfate 4 gm/ Premix 100 mls @ 50 mls/hr IV ONETIME ONE Stop: 01/30/17 12:23 Last Admin: 01/30/17 10:52 Dose: 50 mls/hr Morphine Sulfate (Morphine) 2 mg IVPUSH Q2H PRN PRN Reason: Pain (severe 7-10) Stop: 01/30/17 14:43 Nicotine (Habitrol) 14 mg TRDERM DAILY [facility] Last Admin: 01/30/17 09:02 Dose: 14 mg Omeprazole (Omeprazole) 40 mg PO DAILY [facility] Last Admin: 01/30/17 09:02 Dose: 40 mg Ondansetron HCl (Zofran Odt) 8 mg PO Q4H PRN PRN Reason: nausea, able to take PO Oxycodone HCl (Oxycodone) 5 mg PO Q4H PRN PRN Reason: Pain (moderate 4-6) Anoro Ellipta 1 each INH DAILY [facility] Last Admin: 01/30/17 09:25 Dose: Not Given Sodium Chloride (Saline Flush) 10 ml FLUSH ASDIRECTED PRN PRN Reason: Keep Vein Open Sodium Chloride (Saline Flush) 2.5 ml FLUSH ASDIRECTED PRN PRN Reason: Keep Vein Open Sucralfate (Carafate) 1 gm PO QID [facility] Last Admin: 01/30/17 11:01 Dose: 1 gm Temazepam (Restoril) 15 mg PO BEDTIME PRN PRN Reason: Sleep Discontinued Medications Aspirin (Aspirin) 324 mg PO ONETIME ONE Stop: 01/29/17 11:48 Last Admin: 01/29/17 12:03 Dose: 324 mg Diltiazem HCl (Diltiazem) 20 mg IVPUSH ONETIME ONE Stop: 01/29/17 11:48 Last Admin: 01/29/17 12:02 Dose: 20 mg Diltiazem HCl (Cardizem Cd) 240 mg PO ONETIME ONE Stop: 01/30/17 10:38 Last Admin: 01/30/17 10:51 Dose: 240 mg Enoxaparin Sodium (Lovenox) 100 mg SUBCUT ONETIME ONE Stop: 01/29/17 12:31 Last Admin: 01/29/17 13:52 Dose: 100 mg Enoxaparin Sodium (Lovenox) 40 mg SUBCUT DAILY [facility] Last Admin: 01/29/17 15:37 Dose: Not Given Sodium Chloride (Normal Saline) 1,000 mls @ 999 mls/hr IV STAT ONE Stop: 01/29/17 12:47 Last Admin: 01/29/17 12:09 Dose: 999 mls/hr Pantoprazole Sodium 40 mg/ (Sodium Chloride) 10 mls @ 300 mls/hr IVPUSH Q10H [facility] Last Admin: 01/29/17 18:19 Dose: Not Given Magnesium Sulfate 2 gm/ Premix 50 mls @ 50 mls/hr IV ONETIME ONE Stop: 01/29/17 22:37 Last Admin: 01/29/17 21:56 Dose: 50 mls/hr Metoprolol Tartrate (Lopressor) 5 mg IVPUSH ONETIME ONE Stop: 01/29/17 12:09 Last Admin: 01/29/17 12:13 Dose: 5 mg Omeprazole (Omeprazole) 40 mg PO DAILY [facility] - Exam Quality Assessment: Supplemental Oxygen General: Alert, Oriented HEENT: Pupils Equal Neck: Supple Lungs: Clear to Auscultation Cardiovascular: Irregular Rhythm GI/Abdominal Exam: Normal Bowel Sounds (Male) Exam: No Hernia Back Exam: Normal Inspection Extremities: Normal Inspection EKG INTERPRETATION Rhythm: A-Fib - Problem List Review Problem List Initiated/Reviewed/Updated: Yes - My Orders Last 24 Hours: My Active Orders 01/30/17 10:24 Magnesium Sulfate/Water [Magnesium Sulfate 4 GM in Water 100 ML] 4 gm Premix Bag 1 bag IV ONETIME 01/30/17 16:11 Echo Comp wo Cont [US] Routine 01/31/17 09:00 Diltiazem [Cardizem CD] 240 mg PO DAILY - Plan Plan:: 56M CODP current smoker ETOH recent GIB with multiple , persistent afib 1. symptomatic persistent afib: due to recent GIB from , and this is recurrent GIB, I would hold off on ATC. For rhythm uatsdin, he would need ATC for at least a month after cardioversion, however with recent GIB, I would do only rate controlled for him, his [id number] = 0. Will transition to cardizem 240 daily, if BP cannot tolerate, will use digoxin. Most llikely related to ETOH.The risk of stroke was explained to patient. - start cardizem 240 daily - hold off on ATC
--- NOTE | 2017-01-30 13:46 | PCM.PN ---
- General Info Date of Service: 01/30/17 Admission Dx/Problem (Free Text): Admission Diagnosis/Problem Admission Diagnosis/Problem Atrial fibrillation Subjective Update: he felt well, last nighthis BP was drop in 80s, dil IVF gtt stopped, his HR 100s rage, now BP improved. Functional Status: Reports: Pain Controlled - Review of Systems General: Reports: No Symptoms HEENT: Reports: No Symptoms Pulmonary: Reports: No Symptoms Cardiovascular: Reports: No Symptoms Gastrointestinal: Reports: No Symptoms Genitourinary: Reports: No Symptoms Musculoskeletal: Reports: No Symptoms Skin: Reports: No Symptoms Neurological: Reports: No Symptoms Psychiatric: Reports: No Symptoms - Patient Data Vitals - Most Recent: Last Vital Signs Temp 36.6 C 01/30/17 08:00 Pulse 131 H 01/30/17 10:51 Resp 17 01/30/17 12:00 BP 108/87 01/30/17 12:00 Pulse Ox 97 01/30/17 12:00 Weight - Most Recent: 97.5 kg I&O - Last 24 Hours: Intake & Output 01/29/17 01/30/17 01/30/17 22:59 06:59 14:59 Intake Total 0 1900 Output Total 0 1225 Balance 0 675 Lab Results Last 24 Hours: Laboratory Results - last 24 hr 01/30/17 01/30/17 01/30/17 Range/Units 05:02 05:02 05:02 WBC 4.77 (4.0-11.0) K/uL RBC 3.90 L (4.50-5.90) M/uL Hgb 11.3 L (13.0-17.0) g/dL Hct 35.2 L (38.0-50.0) % MCV 90.3 (80.0-98.0) fL MCH 29.0 (27.0-32.0) pg MCHC 32.1 (31.0-37.0) g/dL RDW Std Deviation 48.4 (28.0-62.0) fl RDW Coeff of Miguel 15 (11.0-15.0) % Plt Count 228 (150-400) K/uL MPV 9.40 (7.40-12.00) fL Neut % (Auto) 37.9 L (48.0-80.0) % Lymph % (Auto) 43.4 H (16.0-40.0) % Deuel % (Auto) 14.3 (0.0-15.0) % Eos % (Auto) 3.4 (0.0-7.0) % Baso % (Auto) 1.0 (0.0-1.5) % Neut # (Auto) 1.8 (1.4-5.7) K/uL Lymph # (Auto) 2.1 (0.6-2.4) K/uL Deuel # (Auto) 0.7 (0.0-0.8) K/uL Eos # (Auto) 0.2 (0.0-0.7) K/uL Baso # (Auto) 0.1 (0.0-0.1) K/uL Nucleated RBC % 0.0 /100WBC Nucleated RBCs # 0 K/uL Sodium (136-146) mmol/L Potassium (3.5-5.1) mmol/L Chloride (98-110) mmol/L Carbon Dioxide (21-31) mmol/L BUN (6.0-23.0) mg/dL Creatinine (0.6-1.5) mg/dL Est Cr Clr Drug Dosing mL/min Estimated GFR (MDRD) ml/min Glucose (60-110) mg/dL Hemoglobin A1c 5.9 (0.0-6.0) % Calcium (8.8-10.8) mg/dL Magnesium (1.5-2.3) mEq/L Triglycerides 214 H (10-190) mg/dL Cholesterol 214 (131-240) mg/dL LDL Cholesterol, Calc 132 (60-180) mg/dL VLDL Cholesterol 43 (5-55) mg/dL HDL Cholesterol 39 L (40-80) mg/dL Cholesterol/HDL Ratio 5.5 (3.3-6.0) 01/30/17 Range/Units 05:02 WBC (4.0-11.0) K/uL RBC (4.50-5.90) M/uL Hgb (13.0-17.0) g/dL Hct (38.0-50.0) % MCV (80.0-98.0) fL MCH (27.0-32.0) pg MCHC (31.0-37.0) g/dL RDW Std Deviation (28.0-62.0) fl RDW Coeff of Miguel (11.0-15.0) % Plt Count (150-400) K/uL MPV (7.40-12.00) fL Neut % (Auto) (48.0-80.0) % Lymph % (Auto) (16.0-40.0) % Deuel % (Auto) (0.0-15.0) % Eos % (Auto) (0.0-7.0) % Baso % (Auto) (0.0-1.5) % Neut # (Auto) (1.4-5.7) K/uL Lymph # (Auto) (0.6-2.4) K/uL Deuel # (Auto) (0.0-0.8) K/uL Eos # (Auto) (0.0-0.7) K/uL Baso # (Auto) (0.0-0.1) K/uL Nucleated RBC % /100WBC Nucleated RBCs # K/uL Sodium 139 (136-146) mmol/L Potassium 4.6 (3.5-5.1) mmol/L Chloride 107 (98-110) mmol/L Carbon Dioxide 28 (21-31) mmol/L BUN 15 (6.0-23.0) mg/dL Creatinine 0.9 (0.6-1.5) mg/dL Est Cr Clr Drug Dosing 97.61 mL/min Estimated GFR (MDRD) > 60.0 ml/min Glucose 100 (60-110) mg/dL Hemoglobin A1c (0.0-6.0) % Calcium 8.3 L (8.8-10.8) mg/dL Magnesium 1.5 (1.5-2.3) mEq/L Triglycerides (10-190) mg/dL Cholesterol (131-240) mg/dL LDL Cholesterol, Calc (60-180) mg/dL VLDL Cholesterol (5-55) mg/dL HDL Cholesterol (40-80) mg/dL Cholesterol/HDL Ratio (3.3-6.0) Med Orders - Current: Current Medications Acetaminophen (Tylenol) 650 mg PO Q4H PRN PRN Reason: Pain (Mild 1-3)/fever Diltiazem HCl (Cardizem Cd) 240 mg PO DAILY [facility] Docusate Sodium (Colace) 100 mg PO BID PRN PRN Reason: Constipation Fluoxetine HCl (Prozac) 20 mg PO DAILY [facility] Last Admin: 01/30/17 09:02 Dose: 20 mg Diltiazem HCl 100 mg/ Sodium (Chloride) 100 mls @ 10 mls/hr IV TITRATE [facility]; 10 MG/HR PRN Reason: Protocol Last Titration: 01/30/17 01:05 Dose: 0 mg/hr, 0 mls/hr Sodium Chloride (Normal Saline) 1,000 mls @ 75 mls/hr IV ASDIRECTED [facility] Last Admin: 01/30/17 09:59 Dose: 75 mls/hr Pantoprazole Sodium 40 mg/ (Sodium Chloride) 10 mls @ 300 mls/hr IVPUSH Q12H [facility] Last Admin: 01/30/17 05:06 Dose: 300 mls/hr Morphine Sulfate (Morphine) 2 mg IVPUSH Q2H PRN PRN Reason: Pain (severe 7-10) Stop: 01/30/17 14:43 Nicotine (Habitrol) 14 mg TRDERM DAILY [facility] Last Admin: 01/30/17 09:02 Dose: 14 mg Omeprazole (Omeprazole) 40 mg PO DAILY [facility] Last Admin: 01/30/17 09:02 Dose: 40 mg Ondansetron HCl (Zofran Odt) 8 mg PO Q4H PRN PRN Reason: nausea, able to take PO Oxycodone HCl (Oxycodone) 5 mg PO Q4H PRN PRN Reason: Pain (moderate 4-6) Anoro Ellipta 1 each INH DAILY [facility] Last Admin: 01/30/17 09:25 Dose: Not Given Sodium Chloride (Saline Flush) 10 ml FLUSH ASDIRECTED PRN PRN Reason: Keep Vein Open Sodium Chloride (Saline Flush) 2.5 ml FLUSH ASDIRECTED PRN PRN Reason: Keep Vein Open Sucralfate (Carafate) 1 gm PO QID [facility] Last Admin: 01/30/17 11:01 Dose: 1 gm Temazepam (Restoril) 15 mg PO BEDTIME PRN PRN Reason: Sleep Discontinued Medications Aspirin (Aspirin) 324 mg PO ONETIME ONE Stop: 01/29/17 11:48 Last Admin: 01/29/17 12:03 Dose: 324 mg Diltiazem HCl (Diltiazem) 20 mg IVPUSH ONETIME ONE Stop: 01/29/17 11:48 Last Admin: 01/29/17 12:02 Dose: 20 mg Diltiazem HCl (Cardizem Cd) 240 mg PO ONETIME ONE Stop: 01/30/17 10:38 Last Admin: 01/30/17 10:51 Dose: 240 mg Enoxaparin Sodium (Lovenox) 100 mg SUBCUT ONETIME ONE Stop: 01/29/17 12:31 Last Admin: 01/29/17 13:52 Dose: 100 mg Enoxaparin Sodium (Lovenox) 40 mg SUBCUT DAILY [facility] Last Admin: 01/29/17 15:37 Dose: Not Given Sodium Chloride (Normal Saline) 1,000 mls @ 999 mls/hr IV STAT ONE Stop: 01/29/17 12:47 Last Admin: 01/29/17 12:09 Dose: 999 mls/hr Pantoprazole Sodium 40 mg/ (Sodium Chloride) 10 mls @ 300 mls/hr IVPUSH Q10H [facility] Last Admin: 01/29/17 18:19 Dose: Not Given Magnesium Sulfate 2 gm/ Premix 50 mls @ 50 mls/hr IV ONETIME ONE Stop: 01/29/17 22:37 Last Admin: 01/29/17 21:56 Dose: 50 mls/hr Magnesium Sulfate 4 gm/ Premix 100 mls @ 50 mls/hr IV ONETIME ONE Stop: 01/30/17 12:23 Last Admin: 01/30/17 10:52 Dose: 50 mls/hr Metoprolol Tartrate (Lopressor) 5 mg IVPUSH ONETIME ONE Stop: 01/29/17 12:09 Last Admin: 01/29/17 12:13 Dose: 5 mg Omeprazole (Omeprazole) 40 mg PO DAILY [facility] - Exam Quality Assessment: No: Supplemental Oxygen General: Alert, Oriented, Cooperative HEENT: Pupils Equal, Pupils Reactive Neck: Supple, Trachea Midline Lungs: Clear to Auscultation, Normal Respiratory Effort Cardiovascular: Irregular Rhythm, Tachycardia GI/Abdominal Exam: Normal Bowel Sounds, Non-Tender, No Distention Back Exam: Normal Inspection Extremities: No Pedal Edema Skin: Warm, Dry, Intact Neurological: No New Focal Deficit - Problem List & Annotations (1) Atrial fibrillation with RVR SNOMED Code(s): 395303967314925 Code(s): I48.91 - UNSPECIFIED ATRIAL FIBRILLATION Status: Acute Priority : High Current Visit: Yes (2) Gastritis SNOMED Code(s): 9796113 Code(s): K29.70 - GASTRITIS, UNSPECIFIED, WITHOUT BLEEDING Status: Acute Priority: Medium Current Visit: Yes Qualifiers: Gastritis type: other gastritis Gastritis bleeding: presence of bleeding unspecified (3) Alcohol use SNOMED Code(s): 778422182 Code(s): Z78.9 - OTHER SPECIFIED HEALTH STATUS Status: Chronic Priority: Medium Current Visit: Yes (4) Tobacco use SNOMED Code(s): 822264817 Code(s): Z72.0 - TOBACCO USE Status: Chronic Priority: Medium Current Visit: Yes - Problem List Review Problem List Initiated/Reviewed/Updated: Yes - My Orders Last 24 Hours: My Active Orders 01/29/17 14:38 Up ad Salome [RC] ASDIRECTED Consult to Physician [CONS] Routine Acetaminophen [Tylenol] 650 mg PO Q4H PRN Docusate Sodium [Colace] 100 mg PO BID PRN Morphine 2 mg IVPUSH Q2H PRN Ondansetron [Zofran ODT] 8 mg PO Q4H PRN Temazepam [Restoril] 15 mg PO BEDTIME PRN oxyCODONE 5 mg PO Q4H PRN Resuscitation Status Routine 01/29/17 14:39 Patient Status [ADT] Routine Oxygen Therapy [RC] PRN Vital Signs [RC] Q1H 01/29/17 14:42 Cardiac Monitoring [RC] Q8H 01/29/17 14:44 Notify Provider Consults [RC] ASDIRECTED 01/29/17 14:45 Nicotine [Habitrol] 14 mg TRDERM DAILY Sodium Chloride 0.9% [Normal Saline] 1,000 ml IV ASDIRECTED 01/29/17 15:45 FLUoxetine [PROzac] 20 mg PO DAILY Omeprazole 40 mg PO DAILY Patient's Own Medication [Ptom] 1 each INH DAILY 01/29/17 17:15 Pantoprazole [ProTONIX IV] 40 mg Sodium Chloride 0.9% [Normal Saline] 10 ml IVPUSH Q12H 01/29/17 18:00 Sucralfate [Carafate] 1 gm PO QID 01/29/17 Dinner 2 Gram Sodium Diet [DIET] - Plan Plan:: 56M CODP current smoker ETOH recent GIB with multiple , persistent afib 1. symptomatic persistent afib: due to recent GIB from , and this is recurrent GIB, I would hold off on ATC. For rhythm advent, he would need ATC for at least a month after cardioversion, however with recent GIB, I would do only rate controlled for him, his [id number] = 0. Will transition to cardizem 240 daily, if BP cannot tolerate, will use digoxin. Most llikely related to ETOH.The risk of stroke was explained to patient. - start cardizem 240 daily - hold off on ATC The patient is a 56-year-old gentleman who is admitted secondary to atrial fibrillation with rapid ventricular response rate. The patient has had his tachycardia controlled but he still remains in atrial fibrillation. I've explained to the patient that the goals for treatment of his atrial fibrillation include rate control, anticoagulation and possible cardioversion at a later date by cardiology. The patient does have a history recently of gastritis which had resulted in some hemorrhage and melena. The patient has not been placed on in the anti-coagulants secondary to this reason. The patient does have a chads 2 score of 0. If the patient has been doing better and his rate is controlled and cardiology appointment is been set than likely the patient can be discharged home to follow-up with his primary care physician and also cardiology.
--- NOTE | 2017-01-30 13:47 | PCM.HP ---
H&P History of Present Illness - General Date of Service: 01/29/17 Admit Problem/Dx: Admission Diagnosis/Problem Admission Diagnosis/Problem Atrial fibrillation Source of Information: Patient History Limitations: Reports: No Limitations - History of Present Illness Onset of Symptoms: Reports: Sudden Duration of Symptoms: Reports: Day(s): Location: Reports: Chest Quality: Reports: Dull Improves with: Reports: None Worsens with: Reports: None Associated Symptoms: Reports: Shortness of Breath Chest Pain Score (Numeric/FACES): 5 - Related Data Allergies/Adverse Reactions: Allergies Allergy/AdvReac Type Severity Reaction Status Date / Time No Known Allergies Allergy Verified 01/29/17 11:39 Home Medications: Home Meds Ferrous Sulfate [Iron] 325 mg PO BID 12/22/16 [History] Esomeprazole [NexIUM] 40 mg PO DAILY 01/29/17 [History] FLUoxetine HCl [Fluoxetine HCl] 20 mg PO DAILY 01/29/17 [History] Sucralfate [Carafate] 1 gm PO QID 01/29/17 [History] Umeclidinium Brm/Vilanterol Tr [Anoro Ellipta 62.5-25 Mcg INH] 1 each IH DAILY 01/29/17 [History] Past Medical History HEENT History: Reports: Impaired Vision Cardiovascular History: Reports: Afib, High Cholesterol Respiratory History: Reports: Other (See Below) Other Respiratory History: Tobacco dependence reports 40 yr history current use 0.5 pack per day Gastrointestinal History: Reports: GERD, PUD, Other (See Below) Other Gastrointestinal History: hx; heartburn/indigestion reports managed with omeprazole Genitourinary History: Reports: None Musculoskeletal History: Reports: Arthritis Neurological History: Reports: None Psychiatric History: Reports: Depression Hematologic History: Reports: Anemia, Blood Transfusion(s), Other (See Below) Other Hematologic History: Reports history of having a blood transfusion - Past Surgical History Head Surgeries/Procedures: Reports: None HEENT Surgical History: Reports: None Cardiovascular Surgical History: Reports: None Respiratory Surgical History: Reports: None GI Surgical History: Reports: Colonoscopy, EGD Neurological Surgical History: Reports: Lumbar Spine, Other (See Below) Other Neurological Surgeries/Procedures: Low back surgery Musculoskeletal Surgical History: Reports: Arthroscopic Knee Social & Family History - Family History Cardiac: Reports: Arrhythmia Oncologic: Reports: Colon - Tobacco Use Smoking Status *Q: Current Every Day Smoker Years of Tobacco use: 40 Packs/Tins Daily: 0.5 Used Tobacco, but Quit: No Second Hand Smoke Exposure: No - Caffeine Use Caffeine Use: Reports: Coffee, Energy Drinks, Soda - Alcohol Use Days Per Week of Alcohol Use: 7 Number of Drinks Per Day: 3 Total Drinks Per Week: 21 Date of Last Drink: 01/28/17 Time of Last Drink: 22:00 - Recreational Drug Use Recreational Drug Use: Yes Drug Use in Last 12 Months: Yes Recreational Drug Type: Reports: Marijuana/Hashish Recreational Drug Use Frequency: Weekly Recreational Drug Last Use: 01/28/17 H&P Review of Systems - Review of Systems: Review Of Systems: See Below General: Reports: Weakness HEENT: Reports: No Symptoms Pulmonary: Reports: Shortness of Breath Cardiovascular: Reports: Palpitations Gastrointestinal: Reports: No Symptoms Genitourinary: Reports: No Symptoms Musculoskeletal: Reports: No Symptoms Skin: Reports: No Symptoms Psychiatric: Reports: No Symptoms Neurological: Reports: No Symptoms Hematologic/Lymphatic: Reports: No Symptoms Immunologic: Reports: No Symptoms Exam - Exam Exam: See Below - Vital Signs Vital Signs: Last Vital Signs Temp 36.6 C 01/30/17 08:00 Pulse 131 H 01/30/17 10:51 Resp 17 01/30/17 12:00 BP 108/87 01/30/17 12:00 Pulse Ox 97 01/30/17 12:00 Weight: 97.5 kg - Exam Quality Assessment: Supplemental Oxygen General: Alert, Oriented, Cooperative HEENT: Conjunctiva Clear, Mucosa Moist & [place], Nares Patent Neck: Supple, Trachea Midline Lungs: Clear to Auscultation, Normal Respiratory Effort Cardiovascular: Irregular Rhythm, Tachycardia GI/Abdominal Exam: Normal Bowel Sounds, Soft, Non-Tender Back Exam: Normal Inspection Extremities: Normal Inspection, No Pedal Edema Skin: Warm, Dry Neuro Extensive - Motor, Sensory, Reflexes: CN II-XII Intact Psychiatric: Alert, Normal Affect - Patient Data Lab Results Last 24 hrs: Laboratory Results - last 24 hr 01/30/17 01/30/17 01/30/17 Range/Units 05:02 05:02 05:02 WBC 4.77 (4.0-11.0) K/uL RBC 3.90 L (4.50-5.90) M/uL Hgb 11.3 L (13.0-17.0) g/dL Hct 35.2 L (38.0-50.0) % MCV 90.3 (80.0-98.0) fL MCH 29.0 (27.0-32.0) pg MCHC 32.1 (31.0-37.0) g/dL RDW Std Deviation 48.4 (28.0-62.0) fl RDW Coeff of Miguel 15 (11.0-15.0) % Plt Count 228 (150-400) K/uL MPV 9.40 (7.40-12.00) fL Neut % (Auto) 37.9 L (48.0-80.0) % Lymph % (Auto) 43.4 H (16.0-40.0) % [place] % (Auto) 14.3 (0.0-15.0) % Eos % (Auto) 3.4 (0.0-7.0) % Baso % (Auto) 1.0 (0.0-1.5) % Neut # (Auto) 1.8 (1.4-5.7) K/uL Lymph # (Auto) 2.1 (0.6-2.4) K/uL [place] # (Auto) 0.7 (0.0-0.8) K/uL Eos # (Auto) 0.2 (0.0-0.7) K/uL Baso # (Auto) 0.1 (0.0-0.1) K/uL Nucleated RBC % 0.0 /100WBC Nucleated RBCs # 0 K/uL Sodium (136-146) mmol/L Potassium (3.5-5.1) mmol/L Chloride (98-110) mmol/L Carbon Dioxide (21-31) mmol/L BUN (6.0-23.0) mg/dL Creatinine (0.6-1.5) mg/dL Est Cr Clr Drug Dosing mL/min Estimated GFR (MDRD) ml/min Glucose (60-110) mg/dL Hemoglobin A1c 5.9 (0.0-6.0) % Calcium (8.8-10.8) mg/dL Magnesium (1.5-2.3) mEq/L Triglycerides 214 H (10-190) mg/dL Cholesterol 214 (131-240) mg/dL LDL Cholesterol, Calc 132 (60-180) mg/dL VLDL Cholesterol 43 (5-55) mg/dL HDL Cholesterol 39 L (40-80) mg/dL Cholesterol/HDL Ratio 5.5 (3.3-6.0) 01/30/17 Range/Units 05:02 WBC (4.0-11.0) K/uL RBC (4.50-5.90) M/uL Hgb (13.0-17.0) g/dL Hct (38.0-50.0) % MCV (80.0-98.0) fL MCH (27.0-32.0) pg MCHC (31.0-37.0) g/dL RDW Std Deviation (28.0-62.0) fl RDW Coeff of Miguel (11.0-15.0) % Plt Count (150-400) K/uL MPV (7.40-12.00) fL Neut % (Auto) (48.0-80.0) % Lymph % (Auto) (16.0-40.0) % [place] % (Auto) (0.0-15.0) % Eos % (Auto) (0.0-7.0) % Baso % (Auto) (0.0-1.5) % Neut # (Auto) (1.4-5.7) K/uL Lymph # (Auto) (0.6-2.4) K/uL [place] # (Auto) (0.0-0.8) K/uL Eos # (Auto) (0.0-0.7) K/uL Baso # (Auto) (0.0-0.1) K/uL Nucleated RBC % /100WBC Nucleated RBCs # K/uL Sodium 139 (136-146) mmol/L Potassium 4.6 (3.5-5.1) mmol/L Chloride 107 (98-110) mmol/L Carbon Dioxide 28 (21-31) mmol/L BUN 15 (6.0-23.0) mg/dL Creatinine 0.9 (0.6-1.5) mg/dL Est Cr Clr Drug Dosing 97.61 mL/min Estimated GFR (MDRD) > 60.0 ml/min Glucose 100 (60-110) mg/dL Hemoglobin A1c (0.0-6.0) % Calcium 8.3 L (8.8-10.8) mg/dL Magnesium 1.5 (1.5-2.3) mEq/L Triglycerides (10-190) mg/dL Cholesterol (131-240) mg/dL LDL Cholesterol, Calc (60-180) mg/dL VLDL Cholesterol (5-55) mg/dL HDL Cholesterol (40-80) mg/dL Cholesterol/HDL Ratio (3.3-6.0) Result Diagrams: 01/30/17 05:02 01/30/17 05:02 EKG INTERPRETATION EKG Interpretation Comments: Atrial fibrillation with rapid ventricular response rate *Q Meaningful Use (ADM) - VTE *Q VTE Criteria *Q: - VTE Risk Assess *Q Each Risk Factor Represents 1 Point: Age 41 - 59 years Total Score 1 Point Risk Factors: 1 - Stroke *Q Stroke Criteria *Q: - AMI *Q AMI Criteria *Q: - Problem List (1) Atrial fibrillation with RVR SNOMED Code(s): 802459527260722 ICD Code: I48.91 - UNSPECIFIED ATRIAL FIBRILLATION Status: Acute Priority : High Current Visit: Yes (2) Gastritis SNOMED Code(s): 2672615 ICD Code: K29.70 - GASTRITIS, UNSPECIFIED, WITHOUT BLEEDING Status: Acute Priority: High Current Visit: Yes Qualifiers: Gastritis type: other gastritis Gastritis bleeding: presence of bleeding unspecified (3) Tobacco use SNOMED Code(s): 749979509 ICD Code: Z72.0 - TOBACCO USE Status: Chronic Priority: High Current Visit: Yes (4) Alcohol use SNOMED Code(s): 028765215 ICD Code: Z78.9 - OTHER SPECIFIED HEALTH STATUS Status: Chronic Priority : High Current Visit: Yes Problem List Initiated/Reviewed/Updated: Yes Orders Last 24hrs: Active Orders 24 hr Category Date Time Status Patient Status [ADT] Routine ADT 01/29/17 14:39 Active Cardiac Monitoring [RC] Q8H Care 01/29/17 14:42 Active Notify Provider Consults [RC] ASDIRECTED Care 01/29/17 14:44 Active Oxygen Therapy [RC] PRN Care 01/29/17 14:39 Active Up ad Salome [RC] ASDIRECTED Care 01/29/17 14:38 Active Vital Signs [RC] Q1H Care 01/29/17 14:39 Active Consult to Physician [CONS] Routine Cons 01/29/17 14:38 Active 2 Gram Sodium Diet [DIET] Diet 01/29/17 Dinner Active Echo Comp wo Cont [US] Routine Exams 01/30/17 16:11 Taken Acetaminophen [Tylenol] Med 01/29/17 14:38 Active 650 mg PO Q4H PRN Diltiazem [Cardizem CD] Med 01/31/17 09:00 Active 240 mg PO DAILY Docusate Sodium [Colace] Med 01/29/17 14:38 Active 100 mg PO BID PRN FLUoxetine [PROzac] Med 01/29/17 15:45 Active 20 mg PO DAILY Morphine Med 01/29/17 14:38 Active 2 mg IVPUSH Q2H PRN Nicotine [Habitrol] Med 01/29/17 14:45 Active 14 mg TRDERM DAILY Omeprazole Med 01/29/17 15:45 Active 40 mg PO DAILY Ondansetron [Zofran ODT] Med 01/29/17 14:38 Active 8 mg PO Q4H PRN Pantoprazole [ProTONIX IV] 40 mg Med 01/29/17 17:15 Active Sodium Chloride 0.9% [Normal Saline] 10 ml IVPUSH Q12H Patient's Own Medication [Ptom] Med 01/29/17 15:45 Active 1 each INH DAILY Sodium Chloride 0.9% [Normal Saline] 1,000 ml Med 01/29/17 14:45 Active IV ASDIRECTED Sucralfate [Carafate] Med 01/29/17 18:00 Active 1 gm PO QID Temazepam [Restoril] Med 01/29/17 14:38 Active 15 mg PO BEDTIME PRN oxyCODONE Med 01/29/17 14:38 Active 5 mg PO Q4H PRN Resuscitation Status Routine Resus Stat 01/29/17 14:38 Ordered Medication Orders Acetaminophen (Tylenol) 650 mg PO Q4H PRN PRN Reason: Pain (Mild 1-3)/fever Diltiazem HCl (Cardizem Cd) 240 mg PO DAILY VERO Docusate Sodium (Colace) 100 mg PO BID PRN PRN Reason: Constipation Fluoxetine HCl (Prozac) 20 mg PO DAILY VERO Last Admin: 01/30/17 09:02 Dose: 20 mg Admin: 01/29/17 16:47 Dose: 20 mg Diltiazem HCl 100 mg/ Sodium (Chloride) 100 mls @ 10 mls/hr IV TITRATE VERO; 10 MG/HR PRN Reason: Protocol Last Titration: 01/30/17 01:05 Dose: 0 mg/hr, 0 mls/hr Titration: 01/30/17 00:05 Dose: 5 mg/hr, 5 mls/hr Admin: 01/29/17 19:35 Dose: 10 mg/hr, 10 mls/hr Titration: 01/29/17 19:35 Dose: 10 mg/hr, 10 mls/hr Titration: 01/29/17 18:22 Dose: 10 mg/hr, 10 mls/hr Titration: 01/29/17 15:55 Dose: 15 mg/hr, 15 mls/hr Titration: 01/29/17 14:15 Dose: 10 mg/hr, 10 mls/hr Admin: 01/29/17 12:30 Dose: 5 mg/hr, 5 mls/hr Sodium Chloride (Normal Saline) 1,000 mls @ 75 mls/hr IV ASDIRECTED VERO Last Admin: 01/30/17 09:59 Dose: 75 mls/hr Infusion: 01/30/17 09:59 Dose: 75 mls/hr Admin: 01/30/17 02:51 Dose: 75 mls/hr Infusion: 01/30/17 02:51 Dose: 75 mls/hr Admin: 01/29/17 15:13 Dose: 75 mls/hr Pantoprazole Sodium 40 mg/ (Sodium Chloride) 10 mls @ 300 mls/hr IVPUSH Q12H VERO Last Admin: 01/30/17 05:06 Dose: 300 mls/hr Infusion: 01/29/17 18:21 Dose: 300 mls/hr Admin: 01/29/17 18:19 Dose: 300 mls/hr Morphine Sulfate (Morphine) 2 mg IVPUSH Q2H PRN PRN Reason: Pain (severe 7-10) Stop: 01/30/17 14:43 Nicotine (Habitrol) 14 mg TRDERM DAILY [facility] Last Admin: 01/30/17 09:02 Dose: 14 mg Admin: 01/29/17 16:46 Dose: 14 mg Omeprazole (Omeprazole) 40 mg PO DAILY [facility] Last Admin: 01/30/17 09:02 Dose: 40 mg Admin: 01/29/17 16:47 Dose: 40 mg Ondansetron HCl (Zofran Odt) 8 mg PO Q4H PRN PRN Reason: nausea, able to take PO Oxycodone HCl (Oxycodone) 5 mg PO Q4H PRN PRN Reason: Pain (moderate 4-6) Anoro Ellipta 1 each INH DAILY [facility] Last Admin: 01/30/17 09:25 Dose: Not Given Admin: 01/29/17 16:26 Dose: Sodium Chloride (Saline Flush) 10 ml FLUSH ASDIRECTED PRN PRN Reason: Keep Vein Open Sodium Chloride (Saline Flush) 2.5 ml FLUSH ASDIRECTED PRN PRN Reason: Keep Vein Open Sucralfate (Carafate) 1 gm PO QID [facility] Last Admin: 01/30/17 11:01 Dose: 1 gm Admin: 01/30/17 05:10 Dose: 1 gm Admin: 01/30/17 00:05 Dose: 1 gm Admin: 01/29/17 18:22 Dose: 1 gm Temazepam (Restoril) 15 mg PO BEDTIME PRN PRN Reason: Sleep Assessment/Plan Comment:: The patient is a 56-year-old gentleman who is been admitted inpatient to ICU on Cardizem drip secondary to his atrial fibrillation with RVR. Patient has been consulted with local kelp gatherer. The patient will be kept on Cardizem drip to keep his heart rate under 100 bpm. This is essentially new atrial fibrillation for the patient. Upon presentation in the emergency department the patient was noted to have a pulse rate of 100 4827 bpm and this was the reason that he was started on Cardizem drip initially. The patient will be closely monitored on telemetry. Because of the patient's history previously of erosive gastritis anticoagulant will be withheld. He will be placed with SCDs for DVT prophylaxis He also be followed by electronic ICU and adjustments will be made accordingly. I've also provide the patient with nicotine patch to help with his tobacco withdrawals. 56M CODP current smoker ETOH recent GIB with multiple , persistent afib 1. symptomatic persistent afib: due to recent GIB from , and this is recurrent GIB, I would hold off on ATC. For rhythm amish, he would need ATC for at least a month after cardioversion, however with recent GIB, I would do only rate controlled for him, his [id number] = 0. Will transition to cardizem 240 daily, if BP cannot tolerate, will use digoxin. Most llikely related to ETOH.The risk of stroke was explained to patient. - start cardizem 240 daily - hold off on ATC
[2017-01-30] MEDS: Rivaroxaban 15 MG Tab PO SCH (20:50)
[2017-01-31] MEDS: Sucralfate 1 GM Tab PO SCH ×3 (00:08→11:23)
[2017-01-31] MEDS: Pantoprazole 40 MG in Sodium Chloride 0.9% 10 ML IVPUSH SCH (05:40)
[2017-01-31 06:42] LABS: CHLORIDE,CL 108 mmol/L (98-110); SODIUM,NA 139 mmol/L (136-146)
[2017-01-31] MEDS ORDERED: Diltiazem 120 MG Cap.CD PO SCH (09:00)
[2017-01-31] MEDS: FLUoxetine 20 MG Cap PO SCH (09:02)
[2017-01-31] MEDS: Omeprazole 20 MG Cap.CR PO SCH (09:03)
[2017-01-31] MEDS: Rivaroxaban 15 MG Tab PO SCH (09:03)
[2017-01-31] MEDS: Nicotine 14 MG/24 Hr Patch TRDERM SCH (09:04)
--- NOTE | 2017-01-31 11:58 | PCM.DCSUM1 ---
Discharge Summary - Hospital Course Free Text/Narrative:: The patient was admitted for atrial fibrillation with RVR. Initially was started on Cardizem drip, patient was evaluated by cardiology and was placed on diltiazem oral. - Discharge Data Discharge Date: 01/31/17 Discharge Disposition: Home, Self-Care 01 Condition: Good - Discharge Diagnosis/Problem(s) (1) Atrial fibrillation with RVR SNOMED Code(s): 303925879924063 ICD Code: I48.91 - UNSPECIFIED ATRIAL FIBRILLATION Status: Acute Priority : High (2) Gastritis SNOMED Code(s): 9235375 ICD Code: K29.70 - GASTRITIS, UNSPECIFIED, WITHOUT BLEEDING Status: Acute Priority: Medium Qualifiers: Gastritis type: other gastritis Gastritis bleeding: presence of bleeding unspecified (3) Alcohol use SNOMED Code(s): 842223611 ICD Code: Z78.9 - OTHER SPECIFIED HEALTH STATUS Status: Chronic Priority : Medium (4) Tobacco use SNOMED Code(s): 283090630 ICD Code: Z72.0 - TOBACCO USE Status: Chronic Priority: Medium - Patient Summary/Data Consults: Consultations 01/29/17 14:38 Consult to Physician [CONS] Routine Hospital Course: The patient is a 56-year-old gentleman who is been admitted inpatient to ICU on Cardizem drip secondary to his atrial fibrillation with RVR. Patient has been consulted with local retail cosmetics sales counter manager. The patient will be kept on Cardizem drip to keep his heart rate under 100 bpm. This is essentially new atrial fibrillation for the patient. Upon presentation in the emergency department the patient was noted to have a pulse rate of 148 bpm and this was the reason that he was started on Cardizem drip initially. The patient will be closely monitored on telemetry. Because of the patient's history previously of erosive gastritis anticoagulant will be withheld. He will be placed with SCDs for DVT prophylaxis He also be followed by electronic ICU and adjustments will be made accordingly. I've also provide the patient with nicotine patch to help with his tobacco withdrawals.The patient also had been started on diltiazem oral at the rate of 250 mg by mouth as per cardiology. The patient tolerated this very well. The patient also has a significant history of gastritis and reportedly had one episode of hematochezia this morning. As a result of this the patient will not be discharged on anticoagulation out of concern for excessive bleeding. Patient' s hemoglobin is currently at 12.5 g/dL. He has been recommended to follow-up with cardiology as scheduled for possible cardioversion at a later date. Been strongly counseled with regards to smoking cessation. The patient also has been recommended to stop alcohol consumption as well. I've elected to change the patient's diltiazem from 240 mg by mouth daily to 360 mg by mouth daily as he still remains tachycardic with an average rate of 110 bpm. The patient's blood pressure was also stable in the 110/75 mmHg. His pulses remained irregular and he'll be discharged with a heart healthy diet as tolerated and activity as tolerated. Patient should follow-up with his primary care physician within 5-7 days. He is otherwise hemodynamically stable and he feels he can go home safely. - Patient Instructions Diet: Heart Healthy Diet Activity: As Tolerated - Discharge Plan Prescriptions/Med Rec: Diltiazem [Cardizem CD] 360 mg PO DAILY #30 cap.cd Esomeprazole [NexIUM] 40 mg PO BID #60 cap Home Medications: Home Meds FLUoxetine HCl [Fluoxetine HCl] 20 mg PO DAILY 01/29/17 [History] Sucralfate [Carafate] 1 gm PO QID 01/29/17 [History] Umeclidinium Brm/Vilanterol Tr [Anoro Ellipta 62.5-25 Mcg INH] 1 each IH DAILY 01/29/17 [History] Diltiazem [Cardizem CD] 360 mg PO DAILY #30 cap.cd 01/31/17 [Rx] Esomeprazole [NexIUM] 40 mg PO BID #60 cap 01/31/17 [Rx] Patient Handouts: Diltiazem tablets, Atrial Fibrillation, Esomeprazole capsules Referrals: Melissa Jackman MD [Physician] - Francisco Brandt MD [Physician] - - Discharge Summary/Plan Comment DC Time >30 min.: Yes - General Info Admission Dx/Problem (Free Text: Admission Diagnosis/Problem Admission Diagnosis/Problem Atrial fibrillation Subjective Update: he felt well, last nighthis BP was drop in 80s, dil IVF gtt stopped, his HR 100s rage, now BP improved. Functional Status: Reports: Pain Controlled, Tolerating Diet - Review of Systems General: Reports: No Symptoms HEENT: Reports: No Symptoms Pulmonary: Reports: No Symptoms Cardiovascular: Reports: Palpitations Gastrointestinal: Reports: No Symptoms Genitourinary: Reports: No Symptoms Musculoskeletal: Reports: No Symptoms Skin: Reports: No Symptoms Neurological: Reports: No Symptoms Psychiatric: Reports: No Symptoms - Patient Data Vitals - Most Recent: Last Vital Signs Temp 36.7 C 01/31/17 04:00 Pulse 133 H 01/31/17 09:04 Resp 17 01/31/17 11:00 BP 101/65 01/31/17 11:00 Pulse Ox 95 01/31/17 11:00 Weight - Most Recent: 96.5 kg I&O - Last 24 hours: Intake & Output 01/30/17 01/31/17 01/31/17 22:59 06:59 14:59 Intake Total 1600 1200 Output Total 1800 1900 Balance -200 -700 Lab Results - Last 24 hrs: Laboratory Results - last 24 hr 01/31/17 01/31/17 Range/Units 06:17 06:17 WBC 5.09 (4.0-11.0) K/uL RBC 4.15 L (4.50-5.90) M/uL Hgb 12.2 L (13.0-17.0) g/dL Hct 37.0 L (38.0-50.0) % MCV 89.2 (80.0-98.0) fL MCH 29.4 (27.0-32.0) pg MCHC 33.0 (31.0-37.0) g/dL RDW Std Deviation 47.9 (28.0-62.0) fl RDW Coeff of Miguel 15 (11.0-15.0) % Plt Count 222 (150-400) K/uL MPV 9.50 (7.40-12.00) fL Neut % (Auto) 47.4 L (48.0-80.0) % Lymph % (Auto) 34.0 (16.0-40.0) % [place] % (Auto) 14.3 (0.0-15.0) % Eos % (Auto) 3.3 (0.0-7.0) % Baso % (Auto) 1.0 (0.0-1.5) % Neut # (Auto) 2.4 (1.4-5.7) K/uL Lymph # (Auto) 1.7 (0.6-2.4) K/uL [place] # (Auto) 0.7 (0.0-0.8) K/uL Eos # (Auto) 0.2 (0.0-0.7) K/uL Baso # (Auto) 0.1 (0.0-0.1) K/uL Nucleated RBC % 0.0 /100WBC Nucleated RBCs # 0 K/uL Sodium 139 (136-146) mmol/L Potassium 4.8 (3.5-5.1) mmol/L Chloride 108 (98-110) mmol/L Carbon Dioxide 26 (21-31) mmol/L BUN 14 (6.0-23.0) mg/dL Creatinine 0.9 (0.6-1.5) mg/dL Est Cr Clr Drug Dosing 97.21 mL/min Estimated GFR (MDRD) > 60.0 ml/min Glucose 103 (60-110) mg/dL Calcium 8.4 L (8.8-10.8) mg/dL Magnesium 1.5 (1.5-2.3) mEq/L Med Orders - Current: Current Medications Acetaminophen (Tylenol) 650 mg PO Q4H PRN PRN Reason: Pain (Mild 1-3)/fever Diltiazem HCl (Cardizem Cd) 240 mg PO DAILY [facility] Last Admin: 01/31/17 09:04 Dose: 240 mg Docusate Sodium (Colace) 100 mg PO BID PRN PRN Reason: Constipation Fluoxetine HCl (Prozac) 20 mg PO DAILY [facility] Last Admin: 01/31/17 09:02 Dose: 20 mg Diltiazem HCl 100 mg/ Sodium (Chloride) 100 mls @ 10 mls/hr IV TITRATE VERO; 10 MG/HR PRN Reason: Protocol Last Titration: 01/30/17 01:05 Dose: 0 mg/hr, 0 mls/hr Sodium Chloride (Normal Saline) 1,000 mls @ 75 mls/hr IV ASDIRECTED VERO Last Admin: 01/30/17 23:06 Dose: 75 mls/hr Pantoprazole Sodium 40 mg/ (Sodium Chloride) 10 mls @ 300 mls/hr IVPUSH Q12H VERO Last Admin: 01/31/17 05:40 Dose: 300 mls/hr Nicotine (Habitrol) 14 mg TRDERM DAILY [facility] Last Admin: 01/31/17 09:04 Dose: Not Given Omeprazole (Omeprazole) 40 mg PO DAILY [facility] Last Admin: 01/31/17 09:03 Dose: 40 mg Ondansetron HCl (Zofran Odt) 8 mg PO Q4H PRN PRN Reason: nausea, able to take PO Oxycodone HCl (Oxycodone) 5 mg PO Q4H PRN PRN Reason: Pain (moderate 4-6) Anoro Ellipta 1 each INH DAILY [facility] Last Admin: 01/31/17 10:05 Dose: Not Given Rivaroxaban (Xarelto) 15 mg PO BID [facility] Last Admin: 01/31/17 09:03 Dose: 15 mg Sodium Chloride (Saline Flush) 10 ml FLUSH ASDIRECTED PRN PRN Reason: Keep Vein Open Sodium Chloride (Saline Flush) 2.5 ml FLUSH ASDIRECTED PRN PRN Reason: Keep Vein Open Sucralfate (Carafate) 1 gm PO QID [facility] Last Admin: 01/31/17 11:23 Dose: 1 gm Temazepam (Restoril) 15 mg PO BEDTIME PRN PRN Reason: Sleep Last Admin: 01/30/17 20:50 Dose: 15 mg Discontinued Medications Aspirin (Aspirin) 324 mg PO ONETIME ONE Stop: 01/29/17 11:48 Last Admin: 01/29/17 12:03 Dose: 324 mg Diltiazem HCl (Diltiazem) 20 mg IVPUSH ONETIME ONE Stop: 01/29/17 11:48 Last Admin: 01/29/17 12:02 Dose: 20 mg Diltiazem HCl (Cardizem Cd) 240 mg PO ONETIME ONE Stop: 01/30/17 10:38 Last Admin: 01/30/17 10:51 Dose: 240 mg Enoxaparin Sodium (Lovenox) 100 mg SUBCUT ONETIME ONE Stop: 01/29/17 12:31 Last Admin: 01/29/17 13:52 Dose: 100 mg Enoxaparin Sodium (Lovenox) 40 mg SUBCUT DAILY [facility] Last Admin: 01/29/17 15:37 Dose: Not Given Sodium Chloride (Normal Saline) 1,000 mls @ 999 mls/hr IV STAT ONE Stop: 01/29/17 12:47 Last Admin: 01/29/17 12:09 Dose: 999 mls/hr Pantoprazole Sodium 40 mg/ (Sodium Chloride) 10 mls @ 300 mls/hr IVPUSH Q10H VERO Last Admin: 01/29/17 18:19 Dose: Not Given Magnesium Sulfate 2 gm/ Premix 50 mls @ 50 mls/hr IV ONETIME ONE Stop: 01/29/17 22:37 Last Admin: 01/29/17 21:56 Dose: 50 mls/hr Magnesium Sulfate 4 gm/ Premix 100 mls @ 50 mls/hr IV ONETIME ONE Stop: 01/30/17 12:23 Last Admin: 01/30/17 10:52 Dose: 50 mls/hr Metoprolol Tartrate (Lopressor) 5 mg IVPUSH ONETIME ONE Stop: 01/29/17 12:09 Last Admin: 01/29/17 12:13 Dose: 5 mg Morphine Sulfate (Morphine) 2 mg IVPUSH Q2H PRN PRN Reason: Pain (severe 7-10) Stop: 01/30/17 14:43 Omeprazole (Omeprazole) 40 mg PO DAILY VERO - Exam Quality Assessment: Denies: Supplemental Oxygen General: Reports: Alert, Oriented, No Acute Distress HEENT: Reports: Pupils Equal, Pupils Reactive. Denies: Scleral Icterus Neck: Reports: Supple, Trachea Midline Lungs: Reports: Clear to Auscultation, Normal Respiratory Effort Cardiovascular: Reports: Regular Rhythm, Tachycardia GI/Abdominal Exam: Normal Bowel Sounds, Soft, Non-Tender, No Distention Back Exam: Reports: Normal Inspection Extremities: Normal Inspection, No Pedal Edema Skin: Reports: Warm, Dry, Intact Neurological: Reports: No New Focal Deficit Psy/Mental Status: Reports: Alert, Normal Affect *Q Meaningful Use (DIS) - VTE *Q VTE Criteria *Q: - Stroke *Q Stroke Criteria *Q: - AMI *Q AMI Criteria *Q:
[2017-01-31 13:27] VITALS: BP 102/74
--- NOTE | 2017-02-04 15:17 | ECHO ---
EXAM DATE: 01/29/17 PATIENT'S AGE: 56 The echocardiogram report can be seen in this patient's EMR (Electronic Medical Record) in the Reports section. The report has also been scanned into PACS. [facility]
== END 2017-01-31 12:30 | disposition home or self-care (01) | DRG 201 ==
LOC: MW.ED 11:37 → MW.ICU 13:16
PROVIDERS: ADMIT Internal Medicine; ATTEND Internal Medicine
DX: I48.91 Unspecified atrial fibrillation (principal); K29.70 Gastritis, unspecified, without bleeding; K21.9 Gastro-esophageal reflux disease without esophagitis; J44.9 Chronic obstructive pulmonary disease, unspecified; E78.5 Hyperlipidemia, unspecified; F32.9 Major depressive disorder, single episode, unspecified; F10.10 Alcohol abuse, uncomplicated; F17.210 Nicotine dependence, cigarettes, uncomplicated; Z79.899 Other long term (current) drug therapy
CPT/HCPCS: 36415; 71010; 71010-26; 80048; 80053; 80061; 83036; 83735; 84443; 84484; 85025; 85610; 93005; 93306; 96361; 96372; 96374; 96375; 99285-25; 99291; A9270-GY; C9113; J1650; J3475; J3490; J7030; J7040

== ENCOUNTER 2017-03-30 14:43 | Emergency (ER) | payer BC ==
[2017-03-30 15:00] VITALS: BP 176/92
[2017-03-30] MEDS ORDERED: Albuterol/Ipratropium 3.0-0.5 MG/3 ML Neb Soln NEB ONE (15:40)
--- NOTE | 2017-03-30 15:40 | EDM.PDOC ---
ED HPI GENERAL MEDICAL PROBLEM - General Chief Complaint: Respiratory Problem Stated Complaint: BRONCHIAL INFECTION Time Seen by Provider: 03/30/17 15:11 Source of Information: Reports: Patient History Limitations: Reports: No Limitations - History of Present Illness INITIAL COMMENTS - FREE TEXT/NARRATIVE: HISTORY AND PHYSICAL: History of present illness: Patient is a 56-year-old male who presents to the emergency room today with complaints of a cough 6 months. He states he has seen a provider multiple times for this complaint and has had a course of antibiotic and prescribed an inhaler which he states improves his symptoms temporarily but they do return. He states "I should be using my inhaler probably more often ". Reports that he "has coughing fits and will cough so hard that he will dry heave ". Denies any abdominal pain, nausea, vomiting or diarrhea. Primary care provider is Dr. Brandt which he states he is seen approximately 1 month ago for a wellness visit. He has been a pack per day smoker for over 40 years but states he recently quit. He denies any chest pain, shortness of breath, fever or chills. Review of systems: As per history of present illness and below otherwise all systems reviewed and negative. Past medical history: As per history of present illness and as reviewed below otherwise noncontributory. Surgical history: As per history of present illness and as reviewed below otherwise noncontributory. Social history: No reported history of drug or alcohol abuse. Family history: As per history of present illness and as reviewed below otherwise noncontributory. Physical exam: General: Nontoxic appearing 56-year-old male. Alert and oriented. Able to speak in full sentences without shortness of breath. HEENT: Atraumatic, normocephalic, pupils reactive, negative for conjunctival pallor or scleral icterus, mucous membranes moist, throat clear, neck supple, nontender, trachea midline. Lungs: Clear to auscultation, diminished to the bases bilaterally, breath sounds equal bilaterally, chest nontender. Heart: S1S2, regular rate and rhythm Abdomen: Soft, nondistended, nontender. Negative for masses or hepatosplenomegaly. Negative for costovertebral tenderness. Pelvis: Stable nontender. Genitourinary: Deferred. Rectal: Deferred. Extremities: Atraumatic, negative for cords or calf pain. Neurovascular unremarkable. Neuro: Awake, alert, oriented. Cranial nerves II through XII unremarkable. Cerebellum unremarkable. Motor and sensory unremarkable throughout. Exam nonfocal. Diagnostics: CBC, CMP, 2 view chest x-ray Therapeutics: DuoNeb, Solu-Medrol IM Impression: Cough Plan: 1. Your lab and x-ray do not show any bacterial infection or a pneumonia. He may continue to use your inhaler that you have already at home. Medrol Dosepak was prescribed at this time. Please take as directed. Tessalon Perles have also been prescribed. He may take 1 tab 3 times a day as needed. 2. Follow-up with your primary care provider in the next 1-2 days. Return to the ED as needed and as discussed. Definitive disposition and diagnosis as appropriate pending reevaluation and review of above. Duration: Other (6 months) Location: Reports: Chest Bilateral Middle Chest Pain Score (Numeric/FACES): 2 - Related Data Allergies Allergy/AdvReac Type Severity Reaction Status Date / Time No Known Allergies Allergy Verified 03/30/17 14:56 Home Meds: Home Meds Omeprazole Magnesium [Prilosec Otc] 20 mg PO DAILY 03/30/17 [History] Past Medical History HEENT History: Reports: Impaired Vision Cardiovascular History: Reports: Afib, High Cholesterol Respiratory History: Reports: Other (See Below) Other Respiratory History: Tobacco dependence reports 40 yr history current use 0.5 pack per day Gastrointestinal History: Reports: GERD, PUD, Other (See Below) Other Gastrointestinal History: hx; heartburn/indigestion reports managed with omeprazole Genitourinary History: Reports: None Musculoskeletal History: Reports: Arthritis Neurological History: Reports: None Psychiatric History: Reports: Depression Endocrine/Metabolic History: Reports: None Hematologic History: Reports: Anemia, Blood Transfusion(s), Other (See Below) Other Hematologic History: Reports history of having a blood transfusion Immunologic History: Reports: None Oncologic (Cancer) History: Reports: None Dermatologic History: Reports: None - Past Surgical History Head Surgeries/Procedures: Reports: None HEENT Surgical History: Reports: None Cardiovascular Surgical History: Reports: None Respiratory Surgical History: Reports: None GI Surgical History: Reports: Colonoscopy, EGD Neurological Surgical History: Reports: Lumbar Spine, Other (See Below) Other Neurological Surgeries/Procedures: Low back surgery Musculoskeletal Surgical History: Reports: Arthroscopic Knee Oncologic Surgical History: Reports: None Social & Family History - Family History Cardiac: Reports: Arrhythmia Oncologic: Reports: Colon - Tobacco Use Smoking Status *Q: Former Smoker Years of Tobacco use: 40 Packs/Tins Daily: 0.5 Used Tobacco, but Quit: Yes Month Tobacco Last Used: 10 Second Hand Smoke Exposure: No - Caffeine Use Caffeine Use: Reports: Coffee, Energy Drinks - Alcohol Use Days Per Week of Alcohol Use: 7 Number of Drinks Per Day: 3 Total Drinks Per Week: 21 - Recreational Drug Use Recreational Drug Use: No Drug Use in Last 12 Months: Yes Recreational Drug Type: Reports: Marijuana/Hashish Recreational Drug Use Frequency: Weekly Recreational Drug Last Use: 01/28/17 ED ROS GENERAL - Review of Systems Review Of Systems: See Below ED EXAM, GENERAL - Physical Exam Exam: See Below (See dictation) Course - Vital Signs Last Recorded V/S: Last Vital Signs Temp 36.7 C 03/30/17 14:57 Pulse 81 03/30/17 14:57 Resp 20 03/30/17 14:57 BP 176/92 H 03/30/17 14:57 Pulse Ox 94 L 03/30/17 14:57 - Orders/Labs/Meds Orders: Active Orders 24 hr Category Date Time Status RT Aerosol Therapy [RC] ASDIRECTED Care 03/30/17 15:40 Active Labs: Laboratory Tests 03/30/17 03/30/17 Range/Units 15:41 15:41 WBC 6.30 (4.0-11.0) K/uL RBC 3.93 L (4.50-5.90) M/uL Hgb 10.6 L (13.0-17.0) g/dL Hct 33.1 L (38.0-50.0) % MCV 84.2 (80.0-98.0) fL MCH 27.0 (27.0-32.0) pg MCHC 32.0 (31.0-37.0) g/dL RDW Std Deviation 45.2 (28.0-62.0) fl RDW Coeff of Miguel 15 (11.0-15.0) % Plt Count 245 (150-400) K/uL MPV 9.20 (7.40-12.00) fL Neut % (Auto) 58.7 (48.0-80.0) % Lymph % (Auto) 25.9 (16.0-40.0) % Bandera % (Auto) 11.1 (0.0-15.0) % Eos % (Auto) 3.3 (0.0-7.0) % Baso % (Auto) 1.0 (0.0-1.5) % Neut # (Auto) 3.7 (1.4-5.7) K/uL Lymph # (Auto) 1.6 (0.6-2.4) K/uL Band[place] # (Auto) 0.7 (0.0-0.8) K/uL Eos # (Auto) 0.2 (0.0-0.7) K/uL Baso # (Auto) 0.1 (0.0-0.1) K/uL Nucleated RBC % 0.0 /100WBC Nucleated RBCs # 0 K/uL Sodium 140 (136-146) mmol/L Potassium 3.7 (3.5-5.1) mmol/L Chloride 105 (98-110) mmol/L Carbon Dioxide 26 (21-31) mmol/L BUN 15 (6.0-23.0) mg/dL Creatinine 0.8 (0.6-1.5) mg/dL Est Cr Clr Drug Dosing 109.81 mL/min Estimated GFR (MDRD) > 60.0 ml/min Glucose 91 (60-110) mg/dL Calcium 8.6 L (8.8-10.8) mg/dL Total Bilirubin 0.3 (0.1-1.5) mg/dL AST 37 (5-40) IU/L ALT 29 (8-54) IU/L Alkaline Phosphatase 58 (40-150) Total Protein 7.3 (6.0-8.0) g/dL Albumin 3.7 (3.5-5.0) g/dL Globulin 3.6 H (2.0-3.5) g/dL Albumin/Globulin Ratio 1.0 L (1.3-2.8) Meds: Medications Discontinued Medications Generic Name Dose Route Start Last Admin Trade Name Freq PRN Reason Stop Dose Admin Albuterol/Ipratropium 3 ml 03/30/17 15:40 03/30/17 15:50 Duoneb 3.0-0.5 Mg/3 Ml NEB 03/30/17 15:41 3 ml ONETIME ONE Administration Methylprednisolone Sodium Succinate 125 mg 03/30/17 15:41 03/30/17 15:49 Solu-Medrol IM 03/30/17 15:42 125 mg ONETIME ONE Administration Departure - Departure Time of Disposition: 16:55 Disposition: Home, Self-Care 01 Clinical Impression: Cough - Discharge Information Referrals: Francisco Brandt MD [Primary Care Provider] - Forms: ED Department Discharge Additional Instructions: My general discharge The following information is given to patients seen in the emergency department who are being discharged to home. This information is to outline your options for follow-up care. We provide all patients seen in our emergency department with a follow-up referral. The need for follow-up, as well as the timing and circumstances, are variable depending upon the specifics of your emergency department visit. If you don't have a primary care physician on staff, we will provide you with a referral. We always advise you to contact your personal physician following an emergency department visit to inform them of the circumstance of the visit and for follow-up with them and/or the need for any referrals to a consulting specialist. The emergency department will also refer you to a specialist when appropriate. This referral assures that you have the opportunity for follow-up care with a specialist. All of these measure are taken in an effort to provide you with optimal care, which includes your follow-up. Under all circumstances we always encourage you to contact your private physician who remains a resource for coordinating your care. When calling for follow-up care, please make the office aware that this follow-up is from your recent emergency room visit. If for any reason you are refused follow-up, please contact the [facility] Emergency Department at and asked to speak to the emergency department charge nurse. [facility] [address] [place] [phone] 1. Your lab and x-ray do not show any bacterial infection or a pneumonia. He may continue to use your inhaler that you have already at home. Medrol Dosepak was prescribed at this time. Please take as directed. Tessalon Perles have also been prescribed. He may take 1 tab 3 times a day as needed. 2. Follow-up with your primary care provider in the next 1-2 days. Return to the ED as needed and as discussed. Definitive disposition and diagnosis as appropriate pending reevaluation and review of above. - My Orders Last 24 Hours: My Active Orders 03/30/17 15:40 RT Aerosol Therapy [RC] ASDIRECTED - Assessment/Plan Last 24 Hours: My Active Orders 03/30/17 15:40 RT Aerosol Therapy [RC] ASDIRECTED
[2017-03-30] MEDS ORDERED: methylPREDNISolone Sodium Succinate 125 MG/2 ML SDV IM ONE (15:41)
[2017-03-30 16:10] LABS: CHLORIDE,CL 105 mmol/L (98-110); SODIUM,NA 140 mmol/L (136-146)
--- NOTE | 2017-03-30 16:48 | CR ---
EXAMINATION: Two-view chest (PA and Lateral views). HISTORY: Cough. FINDINGS: The trachea is midline. The cardiomediastinal silhouette is within normal limits. There is mild atele ctasis/scarring within the lung bases no pleural effusion or pneumothorax. Osseous structures appear unremarkable. IMPRESSION: Mild atelectasis/scarring within the lung bases and acute cardiopulmonary finding.
== END 2017-03-30 17:09 | disposition home or self-care (01) ==
LOC: MW.ED 14:43
DX: R05 Cough (principal); Z87.891 Personal history of nicotine dependence
CPT/HCPCS: 36415; 71020; 80053; 85025; 94640; 96372; 99283; J2930

== ENCOUNTER 2017-06-24 14:02 | Emergency (ER) | payer BC ==
[2017-06-24] MEDS ORDERED: Sodium Chloride 0.9% 2.5 ML Syringe FLUSH PRN (14:30)
[2017-06-24] MEDS ORDERED: Sodium Chloride 0.9% 10 ML Syringe FLUSH PRN (14:30)
--- NOTE | 2017-06-24 14:30 | EDM.PDOC ---
ED HPI GENERAL MEDICAL PROBLEM - General Chief Complaint: Gastrointestinal Problem Stated Complaint: NAUSEA AND VOMITNG Time Seen by Provider: 06/24/17 14:28 Source of Information: Reports: Patient, Old Records History Limitations: Reports: No Limitations - History of Present Illness INITIAL COMMENTS - FREE TEXT/NARRATIVE: HISTORY AND PHYSICAL: []56-year-old male presenting with nausea and vomiting today History of Present Illness: []Patient has a primary care provider Dr. Be. Patient has history of ulcerative disease History of anemia Was seen 2 weeks ago in the emergency room for cough 6 months Smoker recently quit/ pack-a-day 40 years Patient states that his doctor kind of "got after him" for drinking too much. Stated that it is hurting his heart muscles. Review of Systems: As per history of present illness and below otherwise all systems reviewed and negative. Past medical history: As per history of present illness and as reviewed below otherwise noncontributory. Surgical history: As per history of present illness and as reviewed below otherwise noncontributory. Social history: No reported history of drug or alcohol abuse. Family history: As per history of present illness and as reviewed below otherwise noncontributory. Physical exam: Alert and oriented gentleman answering questions appropriately, no shortness breath noted. HEENT: Atraumatic, normocehpalic, pupils reactive, negative for conjunctival pallor or scleral icterus, mucous membranes moist, throat clear, neck supple, nontender, trachea midline. No cervical adenopathy on palpation. Lungs: Clear to auscultation, breath sounds equal bilaterally, chest non tender. Good inspiratory expiratory effort. Heart: S1S2, regular, negative for clicks, rubs, or JVD. Abdomen: Soft, nondistended, generalized tenderness. Negative for masses or hepatossplenmegaly. Negative for costovertebral tenderness. Pelvis: Stable nontender. Genitourinary: Deferred. Rectal: Deferred Extremities: Atraumatic, negative for cords or calf pain. Neurovascular unremarkable. Neuro: Awake, alert, oriented. Cranial nerves II through XII unremarkable. Cerebellum unremarkable. Motor and sensory unremarkable throughout. Exam nonfocal. Diagnostics: [CBC, CMP, CT abdomen and pelvis with contrast ,UA ,amylase, lipase] Therapeutics: []IV fluids Pepcid IV Impression: [Abdominal pain likely from hiatal hernia] Plan: [Discharged to home Increase your omeprazole to twice daily Follow-up with your primary care provider next week Raise head of your bed up 6 inches as discussed] Definitive disposition and diagnosis as appropriate pending reevaluation and review of above. Onset: Today, Sudden Duration: Hour(s):, Getting Worse Location: Reports: Abdomen Treatments [employer]EMENT: Reports: EKG Generalized Pain Score (Numeric/FACES): 2 - Related Data Allergies Allergy/AdvReac Type Severity Reaction Status Date / Time No Known Allergies Allergy Verified 06/24/17 14:17 Home Meds: Home Meds Omeprazole Magnesium [Prilosec Otc] 20 mg PO DAILY 03/30/17 [History] FLUoxetine HCl [Fluoxetine HCl] 20 mg PO DAILY 06/24/17 [History] Past Medical History HEENT History: Reports: Impaired Vision Cardiovascular History: Reports: Afib, High Cholesterol Respiratory History: Reports: Other (See Below) Other Respiratory History: Tobacco dependence reports 40 yr history current use 0.5 pack per day Gastrointestinal History: Reports: GERD, PUD, Other (See Below) Other Gastrointestinal History: hx; heartburn/indigestion reports managed with omeprazole Genitourinary History: Reports: None Musculoskeletal History: Reports: Arthritis Neurological History: Reports: None Psychiatric History: Reports: Depression Endocrine/Metabolic History: Reports: None Hematologic History: Reports: Anemia, Blood Transfusion(s), Other (See Below) Other Hematologic History: Reports history of having a blood transfusion Immunologic History: Reports: None Oncologic (Cancer) History: Reports: None Dermatologic History: Reports: None - Infectious Disease History Infectious Disease History: Reports: Chicken Pox - Past Surgical History Head Surgeries/Procedures: Reports: None HEENT Surgical History: Reports: None Cardiovascular Surgical History: Reports: None Respiratory Surgical History: Reports: None GI Surgical History: Reports: Colonoscopy, EGD Neurological Surgical History: Reports: Lumbar Spine, Other (See Below) Other Neurological Surgeries/Procedures: Low back surgery Musculoskeletal Surgical History: Reports: Arthroscopic Knee Oncologic Surgical History: Reports: None Social & Family History - Family History Family Medical History: Noncontributory Cardiac: Reports: Arrhythmia Oncologic: Reports: Colon - Tobacco Use Smoking Status *Q: Current Some Day Smoker Years of Tobacco use: 38 Packs/Tins Daily: 0.5 Used Tobacco, but Quit: Yes Month Tobacco Last Used: 10 Second Hand Smoke Exposure: No - Caffeine Use Caffeine Use: Reports: Coffee, Soda - Alcohol Use Days Per Week of Alcohol Use: 7 Number of Drinks Per Day: 3 Total Drinks Per Week: 21 - Recreational Drug Use Recreational Drug Use: No Drug Use in Last 12 Months: Yes Recreational Drug Type: Reports: Marijuana/Hashish Recreational Drug Use Frequency: Weekly Recreational Drug Last Use: 01/28/17 ED ROS GENERAL - Review of Systems Review Of Systems: ROS reveals no pertinent complaints other than HPI. ED EXAM, GI/ABD - Physical Exam Exam: See Below (See dictation) Course - Vital Signs Last Recorded V/S: Last Vital Signs Temp 36.4 C 06/24/17 14:11 Pulse 120 H 06/24/17 14:11 Resp 20 06/24/17 14:11 BP 158/106 H 06/24/17 14:11 Pulse Ox 97 06/24/17 14:11 - Orders/Labs/Meds Orders: Active Orders 24 hr Category Date Time Status EKG Documentation Completion [RC] STAT Care 06/24/17 14:30 Active CULTURE URINE [RM] Stat Lab 06/24/17 14:31 Uncollected UA W/MICROSCOPIC [URIN] Stat Lab 06/24/17 14:31 Uncollected Sodium Chloride 0.9% [Saline Flush] Med 06/24/17 14:30 Active 10 ml FLUSH ASDIRECTED PRN Sodium Chloride 0.9% [Saline Flush] Med 06/24/17 14:30 Active 2.5 ml FLUSH ASDIRECTED PRN Saline Lock Insert [OM.PC] Stat Oth 06/24/17 14:30 Ordered Medication Orders Sodium Chloride (Saline Flush) 10 ml FLUSH ASDIRECTED PRN PRN Reason: Keep Vein Open Sodium Chloride (Saline Flush) 2.5 ml FLUSH ASDIRECTED PRN PRN Reason: Keep Vein Open Labs: Laboratory Tests 06/24/17 06/24/17 Range/Units 14:40 14:40 WBC 4.32 (4.0-11.0) K/uL RBC 4.80 (4.50-5.90) M/uL Hgb 12.1 L (13.0-17.0) g/dL Hct 37.7 L (38.0-50.0) % MCV 78.5 L (80.0-98.0) fL MCH 25.2 L (27.0-32.0) pg MCHC 32.1 (31.0-37.0) g/dL RDW Std Deviation 49.4 (28.0-62.0) fl RDW Coeff of Miguel 17 H (11.0-15.0) % Plt Count 270 (150-400) K/uL MPV 8.90 (7.40-12.00) fL Add Manual Diff YES Neutrophils % (Manual) 61 (48.0-80.0) % Lymphocytes % (Manual) 26 (16.0-40.0) % Monocytes % (Manual) 9 (0.0-15.0) % Eosinophils % (Manual) 2 (0.0-7.0) % Basophils % (Manual) 2 H (0.0-1.5) % Nucleated RBC % 0.0 /100WBC Absolute Seg Neuts 2.6 (1.4-5.7) Lymphocytes # (Manual) 1.1 (0.6-2.4) Monocytes # (Manual) 0.4 (0.0-0.8) Eosinophils # (Manual) 0.1 (0.0-0.7) Basophils # (Manual) 0.1 (0.0-0.1) Nucleated RBCs # 0 K/uL Sodium 140 (136-146) mmol/L Potassium 4.2 (3.5-5.1) mmol/L Chloride 101 (98-110) mmol/L Carbon Dioxide 23 (21-31) mmol/L BUN 10 (6.0-23.0) mg/dL Creatinine 0.9 (0.6-1.5) mg/dL Est Cr Clr Drug Dosing 100.59 mL/min Estimated GFR (MDRD) > 60.0 ml/min Glucose 98 (60-110) mg/dL Calcium 9.1 (8.8-10.8) mg/dL Total Bilirubin 0.5 (0.1-1.5) mg/dL AST 114 H (5-40) IU/L ALT 151 H (8-54) IU/L Alkaline Phosphatase 60 (40-150) Total Protein 8.1 H (6.0-8.0) g/dL Albumin 4.3 (3.5-5.0) g/dL Globulin 3.8 H (2.0-3.5) g/dL Albumin/Globulin Ratio 1.1 L (1.3-2.8) Amylase 110 H (10-90) U/L Lipase 26 (7-80) U/L Meds: Medications Generic Name Dose Route Start Last Admin Trade Name Franklin PRN Reason Stop Dose Admin Sodium Chloride 10 ml 06/24/17 14:30 Saline Flush FLUSH ASDIRECTED PRN Keep Vein Open Sodium Chloride 2.5 ml 06/24/17 14:30 Saline Flush FLUSH ASDIRECTED PRN Keep Vein Open Discontinued Medications Generic Name Dose Route Start Last Admin Trade Name Freq PRN Reason Stop Dose Admin Ondansetron HCl 4 mg 06/24/17 14:34 06/24/17 14:54 Zofran IVPUSH 06/24/17 14:35 4 mg ONETIME ONE Administration Departure - Departure Time of Disposition: 15:58 Disposition: Home, Self-Care 01 Condition: Good Clinical Impression: Hiatal hernia - Discharge Information Instructions: Abdominal Pain, Adult, [id number] Referrals: Francisco Brandt MD [Primary Care Provider] - Forms: ED Department Discharge Additional Instructions: The following information is given to patients seen in the emergency department who are being discharged to home. This information is to outline your options for follow-up care. We provide all patients seen in our emergency department with a follow-up referral. The need for follow-up, as well as the timing and circumstances, are variable depending upon the specifics of your emergency department visit. If you don't have a primary care physician on staff, we will provide you with a referral. We always advise you to contact your personal physician following an emergency department visit to inform them of the circumstance of the visit and for follow-up with them and/or the need for any referrals to a consulting specialist. The emergency department will also refer you to a specialist when appropriate. This referral assures that you have the opportunity for followup care with a specialist. All of these measure are taken in an effort to provide you with optimal care, which includes your followup. Under all circumstances we always encourage you to contact your private physician who remains a resource for coordinating your care. When calling for followup care, please make the office aware that this follow-up is from your recent emergency room visit. If for any reason you are refused follow-up, please contact the [facility] emergency department at and asked to speak to the emergency department charge nurse. Increase your omeprazole to twice daily for the next week Follow-up with your primary care provider next week Any worsening of symptoms return for reevaluation over the weekend to the ER - My Orders Last 24 Hours: My Active Orders 06/24/17 14:30 EKG Documentation Completion [RC] STAT Sodium Chloride 0.9% [Saline Flush] 10 ml FLUSH ASDIRECTED PRN Sodium Chloride 0.9% [Saline Flush] 2.5 ml FLUSH ASDIRECTED PRN Saline Lock Insert [OM.PC] Stat 06/24/17 14:31 CULTURE URINE [RM] Stat UA W/MICROSCOPIC [URIN] Stat - Assessment/Plan Last 24 Hours: My Active Orders 06/24/17 14:30 EKG Documentation Completion [RC] STAT Sodium Chloride 0.9% [Saline Flush] 10 ml FLUSH ASDIRECTED PRN Sodium Chloride 0.9% [Saline Flush] 2.5 ml FLUSH ASDIRECTED PRN Saline Lock Insert [OM.PC] Stat 06/24/17 14:31 CULTURE URINE [RM] Stat UA W/MICROSCOPIC [URIN] Stat
[2017-06-24] MEDS ORDERED: Ondansetron 4 MG/2 ML SDV IVPUSH ONE (14:34)
[2017-06-24 15:14] LABS: CHLORIDE,CL 101 mmol/L (98-110); SODIUM,NA 140 mmol/L (136-146)
--- NOTE | 2017-06-24 15:48 | CT ---
CT scan of the abdomen and pelvis Clinical history: Pain Comparison: Similar Findings: Images through the lung bases show platelike scarring at both lung bases. Images through the abdomen reveal a large hiatal hernia with a fatty liver normal-sized spleen normal pancreas and gallbladder and no other significant upper abdominal abnormal findings. The kidneys and retroperitoneum show no significant hydronephrosis hydroureter adenopathy or other si gnificant finding. Images of the bowel and mesentery are normal. There is no evidence of a dilated tubular appendix. No conspicuous diverticulosis and certainly no evidence of diverticulitis. Images through the pelvis show no pelvic mass or lymphadenopathy. Inguinal regions are normal. Bone window images demonstrate no evidence of aggressive or destructive lesion. There is moderate art hritis of the lower lumbar spine. Impression: No CT findings to explain patient's abdominal pain. Fatty liver. Hiatal hernia.:
[2017-06-24 19:20] VITALS: BP 143/96
== END 2017-06-24 16:16 | disposition home or self-care (01) ==
LOC: MW.ED 14:02
DX: K44.9 Diaphragmatic hernia without obstruction or gangrene (principal); E78.00 Pure hypercholesterolemia, unspecified; F17.210 Nicotine dependence, cigarettes, uncomplicated; Z79.899 Other long term (current) drug therapy
CPT/HCPCS: 36415; 74176; 80053; 82150; 83690; 85025; 93005; 96374; 99284; J2405

== ENCOUNTER 2017-06-29 16:39 | Emergency (ER) | payer BC ==
--- NOTE | 2017-06-29 16:57 | EDM.PDOCBH ---
ED HPI GENERAL MEDICAL PROBLEM - General Chief Complaint: Behavioral/Psych Stated Complaint: SUICIDAL Time Seen by Provider: 06/29/17 16:57 Source of Information: Reports: Patient History Limitations: Reports: No Limitations - History of Present Illness INITIAL COMMENTS - FREE TEXT/NARRATIVE: HISTORY AND PHYSICAL: History of present illness: Patient is a 56 year old male who presents to the emergency room today with complaints of suicidal ideations. He is accompanied by his ex girlfriend in the room who had brought him in today. The patient states he has a history of depression and had been on fluoxetine for the past 2 years. He states he has not taken this medication in over a year, but last week was able to fill the prescription and restart this medication on his own. He states he has not seen a primary care provider for his depression, "I am surprised they filled it". Patient states that he and his ex-girlfriend have broken up approximately one year ago due to his alcohol and drug abuse. The girlfriend at the bedside reports that he will intermittently call and text her for emotional support. She states that she has continued intact with him to help him with his depression. Today the patient went to her house and told her that he had a gun, which he was unable to load because he "was too drunk". He reports that if he were able to have loaded the gun, he would have killed himself. He has had suicidal ideations in the past but has never had a plan in which she wanted to act out. Denies any auditory or visual hallucinations. Denies any homicidal thoughts. Patient does drink vodka daily, has been drinking today. States he has a history of marijuana and methamphetamine use. Last used marijuana one month ago , meth use was approximately one year ago. Patient states that he has not been feeling well for the past several months and has had intermittent dizziness, nausea, vomiting and feeling of lightheaded. Patient believes his symptoms are due to his past alcohol and drug abuse and "been too hard on my body". He denies any chest pains, shortness of breath, abdominal pain, diarrhea or constipation. Review of systems: As per history of present illness and below otherwise all systems reviewed and negative. Past medical history: As per history of present illness and as reviewed below otherwise noncontributory. Surgical history: As per history of present illness and as reviewed below otherwise noncontributory. Social history: No reported history of drug or alcohol abuse. Family history: As per history of present illness and as reviewed below otherwise noncontributory. Physical exam: General: Well-developed and well-nourished 56 she'll male. Alert and oriented. Nontoxic appearing and in no acute distress. HEENT: Atraumatic, normocephalic, pupils reactive, negative for conjunctival pallor or scleral icterus, mucous membranes moist, throat clear, neck supple, nontender, trachea midline. Lungs: Clear to auscultation, breath sounds equal bilaterally, chest nontender. Heart: S1S2, regular rate and rhythm Abdomen: Soft, nondistended, nontender. Negative for masses or hepatosplenomegaly. Negative for costovertebral tenderness. Pelvis: Stable nontender. Genitourinary: Deferred. Rectal: Deferred. Extremities: Atraumatic, negative for cords or calf pain. Neurovascular unremarkable. Neuro: Awake, alert, oriented. Cranial nerves II through XII unremarkable. Cerebellum unremarkable. Motor and sensory unremarkable throughout. Exam nonfocal. Patient recieved a liter of NS. She remains alert and oriented and is up ambulating to use the bathroom. Gait is steady. Ex- girlfriend is at bedside. Informed of the emergency committal form that will be placed on him. Patient's AST/LTR elevated. ETOH 177 (drawn an hour ago). Dr. Mendoza, psychiatrist at [facility], is consulted on this case. She has agreed to take this patient. Patient will go through the emergency departmen , which Dr Salinas was informed of this patient by me. A emergency committal form was completed and filled out. A copy of all his medical records from today will be sent with the patient. She is agreeable for transfer. EMS will transport patient. Diagnostics: CBC, CMP, urine drug screen, UA, acetaminophen, salicylate, alcohol level Therapeutics: IV fluid Impression: #1 Suicidal ideation #2 Depression Plan: Transfer via EMS to [facility] for Mental Health evaluation Definitive disposition and diagnosis as appropriate pending reevaluation and review of above. Onset: Today Duration: Chronic - Related Data Allergies Allergy/AdvReac Type Severity Reaction Status Date / Time No Known Allergies Allergy Verified 06/29/17 16:50 Home Meds: Home Meds Omeprazole Magnesium [Prilosec Otc] 20 mg PO DAILY 03/30/17 [History] FLUoxetine HCl [Fluoxetine HCl] 20 mg PO DAILY 06/24/17 [History] Ondansetron [Zofran ODT] 4 mg PO Q8H PRN #12 tab.dis 06/24/17 [Rx] Past Medical History HEENT History: Reports: Impaired Vision Cardiovascular History: Reports: Afib, High Cholesterol Respiratory History: Reports: Other (See Below) Other Respiratory History: Tobacco dependence reports 40 yr history current use 0.5 pack per day Gastrointestinal History: Reports: GERD, PUD, Other (See Below) Other Gastrointestinal History: hx; heartburn/indigestion reports managed with omeprazole Genitourinary History: Reports: None Musculoskeletal History: Reports: Arthritis Neurological History: Reports: None Psychiatric History: Reports: Depression Endocrine/Metabolic History: Reports: None Hematologic History: Reports: Anemia, Blood Transfusion(s), Other (See Below) Other Hematologic History: Reports history of having a blood transfusion Immunologic History: Reports: None Oncologic (Cancer) History: Reports: None Dermatologic History: Reports: None - Infectious Disease History Infectious Disease History: Reports: Chicken Pox - Past Surgical History Head Surgeries/Procedures: Reports: None HEENT Surgical History: Reports: None Cardiovascular Surgical History: Reports: None Respiratory Surgical History: Reports: None GI Surgical History: Reports: Colonoscopy, EGD Neurological Surgical History: Reports: Lumbar Spine, Other (See Below) Other Neurological Surgeries/Procedures: Low back surgery Musculoskeletal Surgical History: Reports: Arthroscopic Knee Oncologic Surgical History: Reports: None Social & Family History - Family History Family Medical History: Noncontributory Cardiac: Reports: Arrhythmia Oncologic: Reports: Colon - Tobacco Use Smoking Status *Q: Current Some Day Smoker Years of Tobacco use: 38 Packs/Tins Daily: 0.5 Used Tobacco, but Quit: Yes Month Tobacco Last Used: 10 Second Hand Smoke Exposure: No - Caffeine Use Caffeine Use: Reports: Coffee, Soda - Alcohol Use Days Per Week of Alcohol Use: 7 Number of Drinks Per Day: 3 Total Drinks Per Week: 21 - Recreational Drug Use Recreational Drug Use: No Drug Use in Last 12 Months: Yes Recreational Drug Type: Reports: Marijuana/Hashish Recreational Drug Use Frequency: Weekly Recreational Drug Last Use: 01/28/17 ED ROS GENERAL - Review of Systems Review Of Systems: ROS reveals no pertinent complaints other than HPI. ED EXAM, BEHAVIORAL HEALTH - Physical Exam Exam: See Below (See dictation) COURSE, BEHAVIORAL HEALTH COMP - Course Vital Signs: Last Vital Signs Temp 97.8 F 06/29/17 16:50 Pulse 114 H 06/29/17 16:50 Resp 18 06/29/17 16:50 BP 156/112 H 06/29/17 16:50 Pulse Ox 95 06/29/17 16:50 Orders, Labs, Meds: Active Orders 24 hr Category Date Time Status DRUG SCREEN, URINE [URCHEM] Stat Lab 06/29/17 18:05 Received UA W/MICROSCOPIC [URIN] Stat Lab 06/29/17 18:05 Received Laboratory Tests 06/29/17 06/29/17 Range/Units 17:20 17:20 WBC 3.45 L (4.0-11.0) K/uL RBC 4.63 (4.50-5.90) M/uL Hgb 11.6 L (13.0-17.0) g/dL Hct 35.8 L (38.0-50.0) % MCV 77.3 L (80.0-98.0) fL MCH 25.1 L (27.0-32.0) pg MCHC 32.4 (31.0-37.0) g/dL RDW Std Deviation 49.9 (28.0-62.0) fl RDW Coeff of Miguel 18 H (11.0-15.0) % Plt Count 211 (150-400) K/uL MPV 8.80 (7.40-12.00) fL Neut % (Auto) 45.8 L (48.0-80.0) % Lymph % (Auto) 40.6 H (16.0-40.0) % Isabela % (Auto) 9.9 (0.0-15.0) % Eos % (Auto) 2.3 (0.0-7.0) % Baso % (Auto) 1.4 (0.0-1.5) % Neut # (Auto) 1.6 (1.4-5.7) K/uL Lymph # (Auto) 1.4 (0.6-2.4) K/uL Isabel[place] # (Auto) 0.3 (0.0-0.8) K/uL Eos # (Auto) 0.1 (0.0-0.7) K/uL Baso # (Auto) 0.1 (0.0-0.1) K/uL Nucleated RBC % 0.0 /100WBC Nucleated RBCs # 0 K/uL Sodium 137 (136-146) mmol/L Potassium 3.7 (3.5-5.1) mmol/L Chloride 99 (98-110) mmol/L Carbon Dioxide 21 (21-31) mmol/L BUN 7 (6.0-23.0) mg/dL Creatinine 0.8 (0.6-1.5) mg/dL Est Cr Clr Drug Dosing 109.81 mL/min Estimated GFR (MDRD) > 60.0 ml/min Glucose 99 (60-110) mg/dL Calcium 8.9 (8.8-10.8) mg/dL Total Bilirubin 0.4 (0.1-1.5) mg/dL AST 163 H (5-40) IU/L ALT 148 H (8-54) IU/L Alkaline Phosphatase 53 (40-150) Total Protein 7.9 (6.0-8.0) g/dL Albumin 4.1 (3.5-5.0) g/dL Globulin 3.8 H (2.0-3.5) g/dL Albumin/Globulin Ratio 1.1 L (1.3-2.8) TSH 3rd Generation 0.91 (0.47-5.0) uIU/mL Salicylates < 5.0 (0-20) mg/dL Acetaminophen < 3.0 ug/mL Ethyl Alcohol 177.4 mg/dL Medications Discontinued Medications Generic Name Dose Route Start Last Admin Trade Name Franklin PRN Reason Stop Dose Admin Sodium Chloride 1,000 mls @ 999 mls/hr 06/29/17 17:13 Normal Saline IV 06/29/17 18:13 STAT ONE Ondansetron HCl 4 mg 06/29/17 17:13 Zofran IVPUSH 06/29/17 17:14 ONETIME ONE Departure - Departure Time of Disposition: 18:32 Disposition: DC/Tfer to Psych Hosp/Unit 65 Clinical Impression: Suicidal ideation Depression Qualifiers: Depression Type: unspecified Qualified Code(s): F32.9 - Major depressive disorder, single episode, unspecified - Discharge Information Referrals: Francisco Brandt MD [Primary Care Provider] - Forms: ED Department Discharge - My Orders Last 24 Hours: My Active Orders 06/29/17 18:05 DRUG SCREEN, URINE [URCHEM] Stat UA W/MICROSCOPIC [URIN] Stat - Assessment/Plan Last 24 Hours: My Active Orders 06/29/17 18:05 DRUG SCREEN, URINE [URCHEM] Stat UA W/MICROSCOPIC [URIN] Stat
[2017-06-29] MEDS ORDERED: Sodium Chloride 0.9% 1,000 ML IV ONE (17:13)
[2017-06-29] MEDS ORDERED: Ondansetron 4 MG/2 ML SDV IVPUSH ONE (17:13)
[2017-06-29 17:49] LABS: CHLORIDE,CL 99 mmol/L (98-110); SODIUM,NA 137 mmol/L (136-146)
[2017-06-29 18:03] LABS: ACETAMINOPHEN < 3.0 ug/mL
[2017-06-29] MEDS ORDERED: LORazepam 1 MG Tab PO ONE (18:57)
[2017-06-29 19:54] VITALS: BP 148/78
== END 2017-06-29 19:15 ==
LOC: MW.ED 16:39
DX: F32.9 Major depressive disorder, single episode, unspecified (principal); R45.851 Suicidal ideations; E78.00 Pure hypercholesterolemia, unspecified; F17.210 Nicotine dependence, cigarettes, uncomplicated; Z79.899 Other long term (current) drug therapy
CPT/HCPCS: 36415; 80053; 80305; 81001; 84443; 85025; 93005; 96374; 99285; A9270; G0480; J2405; J7040; 99284

== ENCOUNTER 2017-08-08 11:37 | Emergency (ER) | payer BC ==
--- NOTE | 2017-08-08 11:47 | EDM.PDOCBH ---
ED HPI GENERAL MEDICAL PROBLEM - General Stated Complaint: PT IS BEING SEEN FOR DEPRESSION Time Seen by Provider: 08/08/17 11:43 Source of Information: Reports: Patient History Limitations: Reports: No Limitations - History of Present Illness INITIAL COMMENTS - FREE TEXT/NARRATIVE: HISTORY AND PHYSICAL: History of present illness: Patient is a 57-year-old male who presents to the emergency room with complaints of depression, suicidal ideations and dyspnea x 1 week. I did see this patient on 06/29/2017 for suicidal ideations. During that time he states he was an old prescription for fluoxetine (not being monitored by a PCP) and self medicating with alcohol. History of marijuana and methamphetamine use. During that time he was transferred to [facility] on a mental health hold. He states he checked himself out after his hold without any reports "I should' ve stayed and received more treatment". He states he had stopped drinking for about 4 weeks but this last week has "got off the wagon". Has been drinking 1 pint of vodka per day. He states he was prescribed "something for my anxiety and depression" but had not filled that. He does currently take his "left over" fluoxetine. Patient has had suicidal ideations for the past week, worse today. He feels that he is having anxiety attack and has some labored breathing with dyspnea. Some intermittent nausea. He denies any mid sternal chest pain, abdominal pain, vomiting or diarrhea. Review of systems: As per history of present illness and below otherwise all systems reviewed and negative. Past medical history: As per history of present illness and as reviewed below otherwise noncontributory. Surgical history: As per history of present illness and as reviewed below otherwise noncontributory. Social history: No reported history of drug or alcohol abuse. Family history: As per history of present illness and as reviewed below otherwise noncontributory. Physical exam: General: Well-developed and well-nourished 57-year-old male. Alert and oriented. Tearful and mildly anxious. Nontoxic appearing and in no acute distress. HEENT: Atraumatic, normocephalic, pupils reactive, negative for conjunctival pallor or scleral icterus, mucous membranes moist, throat clear, neck supple, nontender, trachea midline. Lungs: Clear to auscultation, breath sounds equal bilaterally, chest nontender. Heart: S1S2, regular rate and rhythm Abdomen: Soft, nondistended, nontender. Negative for masses or hepatosplenomegaly. Negative for costovertebral tenderness. Pelvis: Stable nontender. Genitourinary: Deferred. Rectal: Deferred. Extremities: Atraumatic, negative for cords or calf pain. Neurovascular unremarkable. Neuro: Awake, alert, oriented. Cranial nerves II through XII unremarkable. Cerebellum unremarkable. Motor and sensory unremarkable throughout. Exam nonfocal. I directly asked the patient if he had a plan for suicide, he states "I just want to ... I need to ". He has not made any attempts. A mental health hold and will be placed on this patient as he has not improved after receiving fluids and Ativan. He is still tearful and having thoughts of harming himself. Symptoms of dyspnea have resolved, patient appears to be calmer. Labs have been reviewed by me. Vitals are stable. Transferred to [facility], Dr. Acuña has agreed to accept this patient. A mental health hold has been done, paperwork completed and sent along with EMS. Patient will go by ground EMS. Patient continues to be alert, orientated, and agreeable for transfer. Diagnostics: CBC, CMP, troponin, EKG, one view chest x-ray, TSH, acetaminophen, salicylate, alcohol, drug screen, UA Therapeutics: Vikas Santana [employer]eb Impression: Depression Anxiety Suicidal ideation Plan: Transfer to [facility] - Dr Acuña Definitive disposition and diagnosis as appropriate pending reevaluation and review of above. Duration: Day(s):, Chronic Location: Reports: Generalized chest Pain Score (Numeric/FACES): 2 - Related Data Allergies Allergy/AdvReac Type Severity Reaction Status Date / Time No Known Allergies Allergy Verified 08/08/17 11:48 Home Meds: Home Meds Omeprazole Magnesium [Prilosec Otc] 20 mg PO DAILY 03/30/17 [History] FLUoxetine HCl [Fluoxetine HCl] 20 mg PO DAILY 06/24/17 [History] Ondansetron [Zofran ODT] 4 mg PO Q8H PRN #12 tab.dis 06/24/17 [Rx] Past Medical History HEENT History: Reports: Impaired Vision Cardiovascular History: Reports: Afib, High Cholesterol Respiratory History: Reports: Other (See Below) Other Respiratory History: Tobacco dependence reports 40 yr history current use 0.5 pack per day Gastrointestinal History: Reports: GERD, PUD, Other (See Below) Other Gastrointestinal History: hx; heartburn/indigestion reports managed with omeprazole Genitourinary History: Reports: None Musculoskeletal History: Reports: Arthritis Neurological History: Reports: None Psychiatric History: Reports: Depression Endocrine/Metabolic History: Reports: None Hematologic History: Reports: Anemia, Blood Transfusion(s), Other (See Below) Other Hematologic History: Reports history of having a blood transfusion Immunologic History: Reports: None Oncologic (Cancer) History: Reports: None Dermatologic History: Reports: None - Infectious Disease History Infectious Disease History: Reports: Chicken Pox - Past Surgical History Head Surgeries/Procedures: Reports: None HEENT Surgical History: Reports: None Cardiovascular Surgical History: Reports: None Respiratory Surgical History: Reports: None GI Surgical History: Reports: Colonoscopy, EGD Neurological Surgical History: Reports: Lumbar Spine, Other (See Below) Other Neurological Surgeries/Procedures: Low back surgery Musculoskeletal Surgical History: Reports: Arthroscopic Knee Oncologic Surgical History: Reports: None Social & Family History - Family History Family Medical History: Noncontributory Cardiac: Reports: Arrhythmia Oncologic: Reports: Colon - Tobacco Use Smoking Status *Q: Current Some Day Smoker Years of Tobacco use: 38 Packs/Tins Daily: 0.5 Used Tobacco, but Quit: Yes Month/Year Tobacco Last Used: 10 Second Hand Smoke Exposure: No - Caffeine Use Caffeine Use: Reports: Coffee, Soda - Alcohol Use Days Per Week of Alcohol Use: 7 Number of Drinks Per Day: 3 Total Drinks Per Week: 21 - Recreational Drug Use Recreational Drug Use: No Drug Use in Last 12 Months: Yes Recreational Drug Type: Reports: Marijuana/Hashish Other Recreational Drug Type: quit meth one year ago. Recreational Drug Use Frequency: Weekly Recreational Drug Last Use: 01/28/17 ED ROS GENERAL - Review of Systems Review Of Systems: ROS reveals no pertinent complaints other than HPI. ED EXAM, BEHAVIORAL HEALTH - Physical Exam Exam: See Below (See dictation) COURSE, BEHAVIORAL HEALTH COMP - Course Vital Signs: Last Vital Signs Temp 97.6 F 08/08/17 11:45 Pulse 115 H 08/08/17 13:22 Resp 18 08/08/17 13:22 BP 106/81 08/08/17 13:22 Pulse Ox 98 08/08/17 13:22 Orders, Labs, Meds: Active Orders 24 hr Category Date Time Status EKG Documentation Completion [RC] STAT Care 08/08/17 11:54 Active RT Aerosol Therapy [RC] ASDIRECTED Care 08/08/17 11:55 Active Chest 1V Frontal [CR] Stat Exams 08/08/17 11:54 Taken DRUG SCREEN, URINE [URCHEM] Stat Lab 08/08/17 11:54 Ordered UA W/MICROSCOPIC [URIN] Stat Lab 08/08/17 11:54 Ordered MVI, Adult with Vitamin K [Infuvite Adult] 10 ml Med 08/08/17 11:54 Active Thiamine [Vitamin B-1] 100 mg Folic Acid 1 mg Sodium Chloride 0.9% [Normal Saline] 1,000 ml IV ONETIME Medication Orders Multivitamins/Minerals 10 ml/Thiamine HCl 100 mg/ Folic Acid 1 mg/ Sodium Chloride 1,011.2 mls @ 500 mls/hr IV ONETIME ONE Stop: 08/08/17 13:55 Last Admin: 08/08/17 12:27 Dose: 500 mls/hr Laboratory Tests 08/08/17 08/08/17 Range/Units 12:06 12:06 WBC 7.86 (4.0-11.0) K/uL RBC 4.75 (4.50-5.90) M/uL Hgb 12.0 L (13.0-17.0) g/dL Hct 36.5 L (38.0-50.0) % MCV 76.8 L (80.0-98.0) fL MCH 25.3 L (27.0-32.0) pg MCHC 32.9 (31.0-37.0) g/dL RDW Std Deviation 51.4 (28.0-62.0) fl RDW Coeff of Miguel 19 H (11.0-15.0) % Plt Count 310 (150-400) K/uL MPV 8.90 (7.40-12.00) fL Neut % (Auto) 59.4 (48.0-80.0) % Lymph % (Auto) 25.2 (16.0-40.0) % [place] % (Auto) 14.1 (0.0-15.0) % Eos % (Auto) 0.8 (0.0-7.0) % Baso % (Auto) 0.5 (0.0-1.5) % Neut # (Auto) 4.7 (1.4-5.7) K/uL Lymph # (Auto) 2.0 (0.6-2.4) K/uL [place] # (Auto) 1.1 H (0.0-0.8) K/uL Eos # (Auto) 0.1 (0.0-0.7) K/uL Baso # (Auto) 0.0 (0.0-0.1) K/uL Nucleated RBC % 0.0 /100WBC Nucleated RBCs # 0 K/uL Sodium 138 (136-148) mmol/L Potassium 4.3 (3.5-5.1) mmol/L Chloride 99 (98-107) mmol/L Carbon Dioxide 24.2 (21.0-32.0) mmol/L BUN 10 (7.0-18.0) mg/dL Creatinine 1.0 (0.8-1.3) mg/dL Est Cr Clr Drug Dosing 89.46 mL/min Estimated GFR (MDRD) > 60.0 ml/min Glucose 131 H (74-106) mg/dL Calcium 9.0 (8.5-10.1) mg/dL Total Bilirubin 0.4 (0.2-1.0) mg/dL AST 26 (15-37) IU/L ALT 29 (14-63) IU/L Alkaline Phosphatase 60 (46-116) U/L Troponin I < 0.050 (0.000-0.056) ng/mL Total Protein 8.0 (6.4-8.2) g/dL Albumin 3.5 (3.4-5.0) g/dL Globulin 4.5 H (2.0-3.5) g/dL Albumin/Globulin Ratio 0.8 L (1.3-2.8) Salicylates 3.9 (0-20) mg/dL Acetaminophen 0.0 ug/mL Ethyl Alcohol 157 mg/dL Medications Generic Name Dose Route Start Last Admin Trade Name Freq PRN Reason Stop Dose Admin Multivitamins/Minerals 10 ml/ 1,011.2 mls @ 500 mls/hr 08/08/17 11:54 12:27 Thiamine HCl 100 mg/ Folic IV 08/08/17 13:55 500 mls/hr Acid 1 mg/ Sodium Chloride ONETIME ONE Administration Discontinued Medications Generic Name Dose Route Start Last Admin Trade Name Franklin PRN Reason Stop Dose Admin Albuterol/Ipratropium 3 ml 08/08/17 11:55 08/08/17 12:34 Duoneb 3.0-0.5 Mg/3 Ml NEB 08/08/17 11:56 3 ml ONETIME ONE Administration Lorazepam 0.5 mg 08/08/17 11:54 08/08/17 12:26 Ativan IVPUSH 08/08/17 11:55 0.5 mg ONETIME ONE Administration Ondansetron HCl 4 mg 08/08/17 11:54 08/08/17 12:27 Zofran IVPUSH 08/08/17 11:55 4 mg ONETIME ONE Administration Departure - Departure Time of Disposition: 13:40 Disposition: DC/Tfer to Psych Hosp/Unit 65 Clinical Impression: Suicidal thoughts, Anxiety, Depressive disorder - Discharge Information Referrals: Francisco Brandt MD [Primary Care Provider] - - My Orders Last 24 Hours: My Active Orders 08/08/17 11:54 EKG Documentation Completion [RC] STAT Chest 1V Frontal [CR] Stat DRUG SCREEN, URINE [URCHEM] Stat UA W/MICROSCOPIC [URIN] Stat MVI, Adult with Vitamin K [Infuvite Adult] 10 ml Thiamine [Vitamin B-1] 100 mg Folic Acid 1 mg Sodium Chloride 0.9% [Normal Saline] 1,000 ml IV ONETIME 08/08/17 11:55 RT Aerosol Therapy [RC] ASDIRECTED - Assessment/Plan Last 24 Hours: My Active Orders 08/08/17 11:54 EKG Documentation Completion [RC] STAT Chest 1V Frontal [CR] Stat DRUG SCREEN, URINE [URCHEM] Stat UA W/MICROSCOPIC [URIN] Stat MVI, Adult with Vitamin K [Infuvite Adult] 10 ml Thiamine [Vitamin B-1] 100 mg Folic Acid 1 mg Sodium Chloride 0.9% [Normal Saline] 1,000 ml IV ONETIME 08/08/17 11:55 RT Aerosol Therapy [RC] ASDIRECTED
[2017-08-08] MEDS ORDERED: Ondansetron 4 MG/2 ML SDV IVPUSH ONE (11:54)
[2017-08-08] MEDS ORDERED: MVI, Adult with Vitamin K 10 ML, Thiamine 100 MG, Folic Acid 1 MG in Sodium Chloride 0.... IV ONE ×4 (11:54)
[2017-08-08] MEDS ORDERED: LORazepam 2 MG/ML SDV IVPUSH ONE (11:54)
[2017-08-08] MEDS ORDERED: Albuterol/Ipratropium 3.0-0.5 MG/3 ML Neb Soln NEB ONE (11:55)
[2017-08-08 12:54] LABS: CHLORIDE,CL 99 mmol/L (98-107); SODIUM,NA 138 mmol/L (136-148)
[2017-08-08 13:51] VITALS: BP 132/90
--- NOTE | 2017-08-10 15:40 | CR ---
EXAM DATE: 08/08/17 PATIENT'S AGE: 57 Patient: JONA ROJAS Facility: [place], [place] Site . Site : [id number] Study: XRay Chest [id number] 12:52:26 PM Ordering Physician: Doctor Gandara Final Report: HISTORY: Shortness of breath. FINDINGS: Single AP view of the chest is provided. Linear atelectasis or scarring is seen at the left lung base. The lungs are otherwise clear and there is no evidence for pleural effusion or pneumothorax. Cardiac silhouette size is within normal limits. IMPRESSION: Linear atelectasis or scarring at the left lung base. The lungs are otherwise clear. Dictated by Yaw Jackson MD @ Aug 08 2017 1:04PM (Electronic Signature) Report Signed by Proxy. KRISTAL
== END 2017-08-08 14:30 ==
LOC: MW.ED 11:37
DX: F32.9 Major depressive disorder, single episode, unspecified (principal); F41.9 Anxiety disorder, unspecified; R45.851 Suicidal ideations; I48.91 Unspecified atrial fibrillation; F17.210 Nicotine dependence, cigarettes, uncomplicated; Z79.899 Other long term (current) drug therapy
CPT/HCPCS: 36415; 71045; 80053; 80305; 81001; 84484; 85025; 93005; 94640; 96365; 96366; 96375; 99285; G0480; J2060; J2405; J3411; J7040; 99284

== ENCOUNTER 2019-07-19 10:32 | Emergency (ER) | payer BC, OTHER ==
[2019-07-19] MEDS ORDERED: Ketorolac 60 MG/2 ML SDV IM ONE (12:12)
--- NOTE | 2019-07-19 12:57 | EDM.PDOC ---
ED HPI GENERAL MEDICAL PROBLEM - General Chief Complaint: Lower Extremity Injury/Pain Stated Complaint: PAIN IN R LEG Time Seen by Provider: 07/19/19 11:15 Source of Information: Reports: Patient History Limitations: Reports: No Limitations - History of Present Illness INITIAL COMMENTS - FREE TEXT/NARRATIVE: HISTORY AND PHYSICAL: History of present illness: Patient is a 59-year-old male presents the ED with complaint of right knee pain. Patient states that he has history of chronic knee pain and arthritis and has had an arthroscopic procedure on the right knee in the past. He states that today is having more significant pain in his right knee and has difficulty walking due to this. He has taken [id number] ibuprofen without relief of symptoms. Denies any injury or trauma to the area. He denies proximal hip pain or distal pain numbness or tingling. Review of systems: As per history of present illness and below otherwise all systems reviewed and negative. Past medical history: As per history of present illness and as reviewed below otherwise noncontributory. Surgical history: As per history of present illness and as reviewed below otherwise noncontributory. Social history: No reported history of drug or alcohol abuse. Family history: As per history of present illness and as reviewed below otherwise noncontributory. Physical exam: General: Patient sitting comfortably in no acute distress and nontoxic appearing HEENT: Atraumatic, normocephalic, pupils reactive, negative for conjunctival pallor or scleral icterus, mucous membranes moist, throat clear, neck supple, nontender, trachea midline. No meningeal signs. Lungs: Clear to auscultation, breath sounds equal bilaterally, chest nontender. Heart: S1S2, regular, negative for clicks, rubs, or overt murmur. Abdomen: Soft, nondistended, nontender. Negative for masses or hepatosplenomegaly. Negative for costovertebral tenderness. No rigidity, rebound , guarding. Pelvis: Stable nontender. Genitourinary: Deferred. Rectal: Deferred. Extremities: No obvious swelling or deformity, skin is intact, no erythema or warmth. Atraumatic, negative for cords or calf pain. Neurovascular unremarkable. Neuro: Awake, alert, oriented. Cranial nerves II through XII unremarkable. Cerebellum unremarkable. Motor and sensory unremarkable throughout. Exam nonfocal. Notes: Diagnostics: X-ray right knee Therapeutics: 60mg Toradol IM Prescriptions: Diclofenac Tramadol #10 Impression: Right knee pain Plan: Ice, elevate, and take diclofenac twice daily with food as instructed. You may take Tylenol as well as needed. You may take tramadol as needed for severe pain, do not take while driving as it may make you drowsy Follow-up with primary care provider and orthopedics, please call the number provided to schedule an appointment Return to ED as needed as discussed Definitive disposition and diagnosis as appropriate pending reevaluation and review of above. Right Knee Pain Score (Numeric/FACES): 7 - Related Data Allergies Allergy/AdvReac Type Severity Reaction Status Date / Time No Known Allergies Allergy Verified 08/08/17 11:48 Home Meds: Home Meds Omeprazole Magnesium [Prilosec Otc] 20 mg PO DAILY 03/30/17 [History] Diclofenac Sodium [Voltaren] 75 mg PO BIDMEALS #20 tab.cr 07/19/19 [Rx] Escitalopram [Lexapro] 20 mg PO DAILY 07/19/19 [History] Past Medical History HEENT History: Reports: Impaired Vision Cardiovascular History: Reports: Afib, High Cholesterol Respiratory History: Reports: Other (See Below) Other Respiratory History: Tobacco dependence reports 40 yr history current use 0.5 pack per day Gastrointestinal History: Reports: GERD, PUD, Other (See Below) Other Gastrointestinal History: hx; heartburn/indigestion reports managed with omeprazole Genitourinary History: Reports: None Musculoskeletal History: Reports: Arthritis Neurological History: Reports: None Psychiatric History: Reports: Depression, Suicidal Ideation Endocrine/Metabolic History: Reports: None Hematologic History: Reports: Anemia, Blood Transfusion(s), Other (See Below) Other Hematologic History: Reports history of having a blood transfusion Immunologic History: Reports: None Oncologic (Cancer) History: Reports: None Dermatologic History: Reports: None - Infectious Disease History Infectious Disease History: Reports: Chicken Pox, Scarlet Fever - Past Surgical History Head Surgeries/Procedures: Reports: None HEENT Surgical History: Reports: None Cardiovascular Surgical History: Reports: None Respiratory Surgical History: Reports: None GI Surgical History: Reports: Colonoscopy, EGD Neurological Surgical History: Reports: Lumbar Spine, Other (See Below) Other Neurological Surgeries/Procedures: Low back surgery Musculoskeletal Surgical History: Reports: Arthroscopic Knee Oncologic Surgical History: Reports: None Social & Family History - Family History Family Medical History: Noncontributory Cardiac: Reports: Arrhythmia Oncologic: Reports: Colon - Tobacco Use Smoking Status *Q: Current Some Day Smoker Years of Tobacco use: 40 Packs/Tins Daily: 0.1 - Caffeine Use Caffeine Use: Reports: Coffee, Soda - Recreational Drug Use Recreational Drug Use: No Review of Systems - Review of Systems Review Of Systems: Comprehensive ROS is negative, except as noted in HPI. ED EXAM, GENERAL - Physical Exam Exam: See Below (See dictation) Course - Vital Signs Last Recorded V/S: Last Vital Signs Temp 98.1 F 07/19/19 11:02 Pulse 87 07/19/19 13:48 Resp 16 07/19/19 13:48 BP 106/70 07/19/19 13:48 Pulse Ox 93 L 07/19/19 13:48 - Orders/Labs/Meds Meds: Medications Discontinued Medications Generic Name Dose Route Start Last Admin Trade Name Freq PRN Reason Stop Dose Admin Ketorolac Tromethamine 60 mg 07/19/19 12:12 07/19/19 12:27 Toradol IM 07/19/19 12:13 60 mg ONETIME ONE Administration Departure - Departure Time of Disposition: 14:46 Disposition: Home, Self-Care 01 Condition: Good Clinical Impression: Right knee pain - Discharge Information Prescriptions: Diclofenac Sodium [Voltaren] 75 mg PO BIDMEALS #20 tab.cr Referrals: Rin Cool, [employer] [Primary Care Provider] - Forms: ED Department Discharge Additional Instructions: The following information is given to patients seen in the emergency department who are being discharged to home. This information is to outline your options for follow-up care. We provide all patients seen in our emergency department with a follow-up referral. The need for follow-up, as well as the timing and circumstances, are variable depending upon the specifics of your emergency department visit. If you don't have a primary care physician on staff, we will provide you with a referral. We always advise you to contact your personal physician following an emergency department visit to inform them of the circumstance of the visit and for follow-up with them and/or the need for any referrals to a consulting specialist. The emergency department will also refer you to a specialist when appropriate. This referral assures that you have the opportunity for follow-up care with a specialist. All of these measure are taken in an effort to provide you with optimal care, which includes your follow-up. Under all circumstances we always encourage you to contact your private physician who remains a resource for coordinating your care. When calling for follow-up care, please make the office aware that this follow-up is from your recent emergency room visit. If for any reason you are refused follow-up, please contact the [facility] Emergency Department at and asked to speak to the emergency department charge nurse. [facility] Primary Care [address] [place] [address] [id number] [address] [facility] Specialty Care - [facility] Professional Building [address] [place] [address], [address] [place] [address] Ice, elevate, and take diclofenac twice daily with food as instructed. You may take Tylenol as well as needed. You may take tramadol as needed for severe pain, do not take while driving as it may make you drowsy Follow-up with primary care provider and orthopedics, please call the number provided to schedule an appointment Return to ED as needed as discussed Definitive disposition and diagnosis as appropriate pending reevaluation and review of above. Sepsis Event Note - Evaluation Sepsis Screening Result: No Definite Risk - Focused Exam Vital Signs: Vital Signs Temp Pulse Resp BP Pulse Ox 07/19/19 13:48 87 16 106/70 93 L 07/19/19 11:02 98.1 F 101 H 18 120/74 95 Date Exam was Performed: 07/19/19 Time Exam was Performed: 14:44
[2019-07-19 13:49] VITALS: BP 106/70; PULSE 87
--- NOTE | 2019-07-19 14:33 | CR ---
Right knee: AP, lateral and sunrise patellar views of the right knee were obtained. Comparison: Prior right knee study of 04/26/15. Severe medial joint space narrowing within normal right knee is seen. Osteophytes are noted off the medial joint compartment. Lateral joint space is preserved. Mild joint space narrowing is seen within the lateral patellofemoral joint with mild patellar osteophytes. Impression: 1. Degenerative change as noted above. Medial joint space narrowing has slightly progressed in severity from previous exam. 2. Nothing acute is seen. Diagnostic code #2 This report was dictated in [place] Standard Time
== END 2019-07-19 15:02 | disposition home or self-care (01) ==
LOC: MW.ED 10:32
DX: M25.561 Pain in right knee (principal); F17.210 Nicotine dependence, cigarettes, uncomplicated
CPT/HCPCS: 73562; 96372; 99283; J1885